=== PATIENT | female | born 1985 | race Caucasian/White ===

== ENCOUNTER → 2025-04-05 | Outpatient (CLI) | payer OTHER, SELFPAY ==
[2025-04-05 13:07] LABS: Hematocrit 44.2 % (37-47); Hemoglobin 14.9 g/dL (12.0-15.0); Immature Granulocytes Count 0.040 X10^3/uL (0.0-0.0); Mean Corp Hgb Conc 33.7 g/dL (32-36); Mean Corpuscular Volume 85.3 fL (81-99); Mean Platelet Vol. 11.8 fl (6.2-12.0); NRBC Flagged by Analyzer 0 % (0-5); Platelet Count 261 K/mm3 (150-450); RBC Distribution Width CV 13.4 % (11.6-14.6); RBC Distribution Width SD 41.5 fl (35.1-43.9); Red Blood Count 5.18 M/mm3 (4.2-5.4); White Blood Count 7.8 K/mm3 (4.4-11.0)
[2025-04-09 00:07] LABS: Ash, White <0.10 kU/L (Class 0); Black Walnut <0.10 kU/L (Class 0); Cat Hair / Dander,Stand <0.10 kU/L (Class 0); Cedar, Mountain <0.10 kU/L (Class 0); Cockroach, American <0.10 kU/L (Class 0); Dog Epithelia <0.10 kU/L (Class 0); Elm, American White <0.10 kU/L (Class 0); Mulberry, White <0.10 kU/L (Class 0); Oak, White <0.10 kU/L (Class 0); Pigweed, Rough <0.10 kU/L (Class 0); Ragweed, Short/Common <0.10 kU/L (Class 0); Sycamore, American <0.10 kU/L (Class 0)
[2025-04-11 16:08] LABS: Aspirgillus flavus Negative (Neg:<1:1); Aspirgillus fumigatus Negative (Neg:<1:1); Aspirgillus niger Negative (Neg:<1:1); Cytoplasmic Ab (C-ANCA) <1:20 titer (Neg:<1:20); Perinuclear Ab (P-ANCA) <1:20 titer (Neg:<1:20)
== END | disposition home or self-care (01) ==
LOC: LAB 12:12
PROVIDERS: PCP Nurse Practitioner Family; Referring Provider Internal Medicine Critical Care Medicine; Visit Provider Internal Medicine Critical Care Medicine
DX: R91.1 Solitary pulmonary nodule (principal); J45.909 Unspecified asthma, uncomplicated
CPT/HCPCS: 36415; 82785; 85025; 86003; 86037; 86606

== ENCOUNTER → 2025-04-14 | Outpatient (CLI) | payer OTHER, SELFPAY ==
--- NOTE | 2025-04-14 18:43 | CT_ITS ---
PROCEDURE: CHEST WITHOUT CONTRAST 04/14/2025 REASON FOR EXAM: LUNG NODULE TECHNIQUE: Chest CT without contrast. Coronal and Sagittal reconstruction series were provided. One or more dose reduction techniques were used (e.g., Automated exposure control, adjustment of the mA and/or kV according to patient size, use of iterative reconstruction technique RADIATION DOSE SUMMARY: CTDlvol: 17.36 mGy DLP: 563.91 mGycm COMPARISON: None. FINDINGS: LUNGS: No pulmonary mass. No focal airspace consolidation. Subpleural right lower lobe nodule measuring 3.2 mm. Small strandy opacity along the right minor fissure, possibly atelectasis or scarring. PLEURAL SPACES: No pleural effusion. No pneumothorax. HEART: No cardiomegaly. No significant pericardial effusion. MEDIASTINUM/HILUM: No significant lymphadenopathy. AORTA: No aneurysm. ESOPHAGUS: Unremarkable. CHEST WALL: The chest wall is unremarkable. BONES: No acute osseous abnormality. UPPER ABDOMEN: The upper abdominal solid organs are unremarkable. CT/Chest without Contrast IMPRESSION: 1. Right lower lobe nodule that is less than 4.0 mm in size. According to the 2017 Fleischner criteria, if the patient is low risk, no routine follow-up is recommended. If the patient is high risk, an opt ional CT at 12 months is recommended. 2. Coronary artery calcification (CAC) is is absent. Reading Location: [id number]
--- OUTSIDE RECORDS SUMMARY | 2025-04-14 18:46 | XMS RPT_ITS | CCD ---
Author Organization [facility] Care Team Providers Care Merchandising Execution Associate Name Role Phone Unavailable Primary Care Provider Antonio KEITH MD, ANDREA Espinosa Attending Unavailable Roof 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-C, Ced Monet Attending Provider Ungerer 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-C, Carmen Attending Provider TALKARMEHREEN Attending Unavailable TALKAR, MEHREEN Referring Unavailable BENDARAM, VA MANZANARES Attending Unavaila ble SELF Referring Unavailable BENDARAM, VA MANZANARES Referring Unavaila ble BENDARAM, VA MANZANARES Attending Unavaila ble Dr. Amando Durant DO Attending Provider [phone] Ungerer 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-C, Carmen Referring Provider [phone] BrownNannettek Attending Unavailable Ungerer, Carmen Referring Unavailable Ungerer, Carmen Attending Unavailable Roof, Ced H Attending Unavailable Ungerer, Carmen Primary Care Unavailable Brown, Amando Attending Unavailable Brown, Amando Referring Unavailable Brown, Amando Attending Unavailable Brown, Amando Referring Unavailable Ungerer, Cramen Primary Care Unavailable Brown, Amando Referring Unavailable Brown, Amando Attending Unavailable Ungerer, Carmen Primary Care Unavailable Brown, Amando Referring Unavailable Brown, Amando Attending Unavailable Ungerer, Carmen Primary Care Unavailable Allergies Allergy Classification Reported Allergen(s) Allergy Type Date of Onset Reaction(s) Facility (6 sources) Cetirizine; Translations: [CETIRIZINE] Drug Allergy 5 Anaphylaxis [facility] (6 sources) metFORMIN; Translations: [METFORMIN] Drug Allergy 5 Diarrhea, Dystonia, Vomiting [facility] (9 sources) PARoxetine; Translations: [PAROXETINE] Drug Allergy 5 Mental Status Change [facility] (3 sources) gabapentin Drug Allergy 5 unknown [facility] (1 source) gabapentin Drug Allergy 5 [facility] (1 source) PARoxetine Drug Allergy 5 [facility] Medications Current Medications Medication Drug Class(es) Dates Sig (Normalized) Sig (Original) [id number] 200 actuat albuterol 0.09 mg/actuat metered dose inhaler (1 source) beta2-Adrenergic Agonist Start: 02-24-2025 Albuterol Sulfate (Ventolin Hfa) 90 mcg/actuation HFA aerosol inhaler Active 2 NMA INHALATION EVERY 4-6 HOURS as needed for shortness of breath or wheezing 6.7 5 February 24, 2025 12:00am ALPRAZolam 0.5 mg oral tablet (3 sources) Benzodiazepine Start: 02-24-2025 take 1 tablet by mouth every eight hours as needed ALPRAZolam (XANAX) 0.5 mg tablet Take 0.5 mg by mouth three times a day as needed. 02/24/2025 Active atorvastatin 20 mg oral tablet (8 sources) HMG-CoA Reductase Inhibitor Start: 02-12-2025 End: 02-12-2025 take 1 tablet by mouth once daily Atorvastatin (Lipitor) 20 mg tablet Active 20 mg PO daily 30 February 12, 2025 11:09am escitalopram 20 mg oral tablet (8 sources) Serotonin Reuptake Inhibitor Start: 02-12-2025 End: 02-12-2025 take 1 tablet by mouth once daily Escitalopram Oxalate (Lexapro) 20 mg tablet Active 20 mg PO daily 30 February 12, 2025 11:09am Ethinyl Estradiol / norgestimate (8 sources) Progestin, Estrogen Start: 03-13-2025 take 1 tablet by mouth once daily norgestimate-ethin yl estradiol (YMQ-MZ-KWLMEQPQ) 0.18/0.215/0.25 mg-0.025 mg tablet Indications: PCOS (polycystic ovarian syndrome) Take 1 tablet by mouth once daily. 84 tablet 03/13/2025 Active Start: 02-12-2025 take 1 tablet by brendan th once daily Norgestimate-Ethinyl Estradiol 0.18/0.215/0.25 mg-0.025 mg tablet Active 1 {tbl} PO daily February 12, 2025 12:00am Start: 12-20-2024 take 1 tablet by brendan th once daily norgestimate-ethinyl estradiol (LED-IO-KKYMWSJR) 0.18/0.215/0.25 mg-0.025 mg tablet Indications: PCOS (polycystic ovarian syndrome) Take 1 tablet by mouth once daily. 84 tablet 12/20/2024 Active Start: 11-07-2024 End: 12-20-2024 take 1 tablet by mouth once daily norgestimate 0.25 mg-ethinyl estradiol 35 mcg 0.25-35 mg-mcg per tablet Indications: PCOS (polycystic ovarian syndrome) Take 1 tablet by mouth once daily. 84 tablet 11/07/2024 12/20/2024 Discontinued Start: 11-07-2024 take 1 tablet by brendan th once daily norgestimate 0.25 mg-ethinyl estradiol 35 mcg 0.25-35 mg-mcg per tablet Indications: PCOS (polycystic ovarian syndrome) Take 1 tablet by mouth once daily. 84 tablet 11/07/2024 Active xwkyxrhpk-mothg-pndhj-jose antonio-l av 0.5-25-12.5 mg chew (5 sources) melatonin-thean- bwcfc-ytit-bht 0.5-25-12.5 mg chew Take 2 Each by mouth once daily. Active naproxen 500 mg oral tablet (4 sources) Nonsteroidal Anti-inflammat ory Drug S t a r t : 0 8 - 2 4 - 2 0 2 5 E n d : 0 9 - 0 3 - 2 0 2 5 take 1 tablet by mouth twice daily as needed for pain naproxen (NAPROSYN) 500 mg tablet Indications: Left elbow pain Take 1 tablet by mouth two times a day as needed (FOR PAIN - TAKE WITH FOOD.) for up to 10 days. 20 tablet 03/19/2025 03/29/2025 Active Start: 02-12-2025 take [address] [facility] twice daily as needed Naproxen Sodium (Aleve) 220 mg capsule Active 220 mg PO TWICE A DAY as needed February 12, 2025 12:00am norgestimate-ethinyl estradiol (SML-QU-JHUSNGYQ PO) (2 sources) norgestimate-eth inyl estradiol (GBJ-BB-WZJESAUK PO) Take by mouth. Active propranolol hydrochloride 20 mg oral tablet (8 sources) beta-Adrenergi c Lenny Start: 2024 take 1 tablet by mouth every twelve hours propranolol (INDERAL) 20 mg tablet Take 1 tablet by mouth every 12 hours. 02/12/2025 Active Start: 02-12-2025 End: 02-12-2025 take 1 tablet by mouth twice daily Propranolol 20 mg tablet Active 20 mg PO TWICE A DAY 60 2 February 12, 2025 11:09am Completed/Discontinued Medications Medication Drug Class(es) Dates Sig (Normalized) Sig (Original) LORazepam 0.5 mg oral tablet (11 sources) Benzodiazepine Start: 02-12-2025 End: 02-24-2025 take 1 tablet by mouth three times daily as needed for anxiety Lorazepam 0.5 mg tablet Discontinued 0.5 mg PO THREE TIMES A DAY as needed for anxiety 21 0 February 12, 2025 11:22am February 24, 2025 4:18pm Start: 02-12-2025 End: 02-12-2025 take 5 mg by mouth three times daily as needed for anxiety Lorazepam 2 mg tablet Discontinued 5 mg PO THREE TIMES A DAY as needed for anxiety 21 0 February 12, 2025 11:09am February 12, 2025 11:23am Problems Active Problems Problem Classification Problem Date Documented Date Episodic/Chronic Administrative/social admission (3 sources) First encounter by subject; Translations: [Persons encountering health services in other specified circumstances] Onset: 04-06-2025 02-24-2025 Episodic Anxiety disorders (11 sources) Anxiety; Translations: [Anxiety disorder, unspecified] Onset: 04-06-2025 Chronic Asthma (5 sources) Asthma; Translations: [Unspecified asthma, uncomplicated] Onset: 04-06-2025 Chronic Asthma (1 source) Asthma Coronary atherosclerosis and other heart disease (4 sources) Coronary atherosclerosis and other heart disease; Translations: [Abnormal computed tomography of lung] Disorders of lipid metabolism (12 sources) Hyperlipidemia; Translations: [Hyperlipidemia, unspecified] Onset: 04-06-2025 Chronic Melanomas of skin (3 sources) Malignant melanoma; Translations: [Malignant melanoma of skin, unspecified] 02-24-2025 Chronic Menstrual disorders (4 sources) Irregular periods; Translations: [Irregular menstruation, unspecified] Onset: 10-19-2024 10-10-2024 Chronic Mood disorders (10 sources) Depression; Translations: [Depressive disorder] Chronic Mood disorders (1 source) Mood disorders; Translations: [Depression, unspecified] Onset: 04-06-2025 Multiple sclerosis (9 sources) Multiple sclerosis; Translations: [Multiple sclerosis] Onset: 04-06-2025 Chronic Other endocrine disorders (3 sources) Polycystic ovary syndrome; Translations: [Polycystic ovarian syndrome] 11-07-2024 Chronic Other lower respiratory disease (1 source) Imaging of lung abnormal ; Translations: [Other nonspecific abnormal finding of lung field] 02-24-2025 Episodic Other lower respiratory disease (2 sources) Nodule of lung; Translations: [Solitary pulmonary nodule] 04-05-2025 Episodic Other lower respiratory disease (2 sources) Solitary pulmonary nodule; Translations: [Solitary pulmonary nodule] Onset: 04-05-2025 Episodic Other lower respiratory disease (1 source) Other nonspecific abnormal finding of lung field; Translations: [Other nonspecific abnormal finding of lung field] Onset: 04-06-2025 Episodic Other nervous system disorders (11 sources) Tremor; Translations: [Tremor, unspecified] Episodic Other nervous system disorders (1 source) Tremor, unspecified; Translations: [Tremor, unspecified] Onset: 04-06-2025 Episodic Other non-traumatic joint disorders (1 source) Pain in unspecified knee; Translations: [Pain in unspecified knee] Onset: 12-26-2024 Episodic Other non-traumatic joint disorders (1 source) Effusion, right knee; Translations: [Effusion, right knee] Onset: 12-26-2024 Episodic Other non-traumatic joint disorders (3 sources) Pain in elbow; Translations: [Pain in left elbow] 03-19-2025 Episodic Other non-traumatic joint disorders (1 source) Pain in left elbow; Translations: [Left elbow pain] Onset: 03-19-2025 Episodic Other screening for suspected conditions (not mental disorders or infectious disease) (1 source) Abnormal findings on diagnostic imaging of other parts of musculoskeletal system; Translations: [Abnormal findings on diagnostic imaging of other parts of musculoskeletal system] Onset: 12-26-2024 Episodic Residual codes; unclassified (1 source) Flushing; Translations: [Flushing] 10-10-2024 Episodic Residual codes; unclassified (4 sources) Family history of cardiac disorder; Translations: [Family history of ischemic heart disease and other diseases of the circulatory system] 02-12-2025 Episodic Residual codes; unclassified (1 source) Family history of ischemic heart disease and other diseases of the circulatory system; Translations: [Family history of ischemic heart disease and other diseases of the circulatory system] Onset: 02-12-2025 Episodic Sprains and strains (1 source) Sprain of unspecified site of right knee, initial encounter; Translations: [Sprain of unspecified site of right knee, initial encounter] Onset: 12-26-2024 Episodic Unclassified (3 sources) F41.9 - Anxiety disorder, unspecified,F32.A - Depression, unspecified,R25.1 - Tremor, unspecified,G35 - Multiple sclerosis,E78.5 - Hyperlipidemia, unspecified,Z82.49 - Family history of ischemic heart disease and other diseases of the circulatory system Past or Other Problems Problem Classification Problem Date Documented Da te Episodic/Chronic Residual codes; unclassified (1 source) Flushing; Translations: [Hot flashes] Onset: 10-19-2024 Episodic Results Test Name Value Interpretation Reference Range Facility ANCAon 04-11-2025 Atypical pANCA <1:20 Normal Neg:<1:20 [facility] Comment on above: Result Comment: The atypical pANCA pattern has been observed in a significant percentage of patients with ulcerative colitis, primary sclerosing cholangitis and autoimmune hepatitis. Performed By: #### L 100.0100, L5500.0700, L3200.1600, L3300.1200, L3500.3600 #### [facility] [address] [place], [address] Cytoplasmic Ab <1:20 Normal Neg:<1:20 [facility] Comment on above: Performed By: #### L 100.0100, L5500.0700, L3200.1600, L3300.1200, L3500.3600 #### [facility] [address] [place], [place], [phone]) Perinuclear Ab. <1:20 Normal Neg:<1:20 [facility] Comment on above: Result Comment: The presence of positive fluorescence exhibiting P-ANCA or C-ANCA patterns alone is not specific for the diagnosis of Rj's Granulomatosis (WG) or microscopic polyangiitis. Decisions about treatment should not be based solely on ANCA IFA results. The International ANCA Group Consensus recommends follow up testing of positive sera with both AR- 3 and MPO-ANCA enzyme immunoassays. As many as 5% serum samples are positive only by EIA. Ref. AM J Clin Pathol 1999;111:507-513. Performed By: #### L 100.0100, L5500.0700, L3200.1600, L3300.1200, L3500.3600 #### [facility] [address] [place], [address] Aspergillus Antibodieson Asp. flavus Negative Normal Neg:<1:1 [facility] Comment on above: Performed By: #### L 100.0100, L5500.0700, L3200.1600, L3300.1200, L3500.3600 #### [facility] [address] [place], [address] Asp. fumigatus Negative Normal Neg:<1:1 [facility] Comment on above: Performed By: #### L 100.0100, L5500.0700, L3200.1600, L3300.1200, L3500.3600 #### [facility] [address] [place], [address] Asp. niger Negative Normal Neg:<1:1 [facility] Comment on above: Performed By: #### L 100.0100, L5500.0700, L3200.1600, L3300.1200, L3500.3600 #### [facility] [address] [place], [address] Immunoglobulin Tone 5 IMMUNOGLOB E QN 20 IU/mL Normal 6-495 [facility] Comment on above: Result Comment: Perf ormed at: [facility] [address] [place] [id number] Research Engineer Marine Equipment: Avery Shahid PhD, Phone: [phone] Performed at: [address] [id number] Research Engineer Marine Equipment: Navya Ford MD, Phone: [phone] Performed By: #### L 100.0100, L5500.0700, L3200.1600, L3300.1200, L3500.3600 #### [facility] [address] [place], [address] Allergen Resp. Area 5on 03-27 ALTERNARIA TEN <0.10 Normal Class 0 [facility] Comment on above: Order Comment: Reaso n for Exam: asthma Performed By: #### L 100.0100, L5500.0700, L3200.1600, L3300.1200, L3500.3600 #### [facility] [address] [place], [address] MARIJA, WHITE <0.10 Normal Class 0 [facility] Comment on above: Order Comment: Reaso n for Exam: asthma Performed By: #### L 100.0100, L5500.0700, L3200.1600, L3300.1200, L3500.3600 #### [facility] [address] [place], [address] ASPERGILLUS FUM <0.10 Normal Class 0 [facility] Comment on above: Order Comment: Reaso n for Exam: asthma Performed By: #### L 100.0100, L5500.0700, L3200.1600, L3300.1200, L3500.3600 #### [facility] [address] [place], [address] BERMUDA GRASS <0.10 Normal Class 0 [facility] Comment on above: Order Comment: Reaso n for Exam: asthma Performed By: #### L 100.0100, L5500.0700, L3200.1600, L3300.1200, L3500.3600 #### [facility] [address] [place], [address] BIRCH <0.10 Normal Class 0 [facility] Comment on above: Order Comment: Reaso n for Exam: asthma Performed By: #### L 100.0100, L5500.0700, L3200.1600, L3300.1200, L3500.3600 #### [facility] [address] [place], [address] BLACK WALNUT <0.10 Normal Class 0 [facility] Comment on above: Order Comment: Reaso n for Exam: asthma Performed By: #### L 100.0100, L5500.0700, L3200.1600, L3300.1200, L3500.3600 #### [facility] [address] [place], [address] CAT HAIR/DANDER <0.10 Normal Class 0 [facility] Comment on above: Order Comment: Reaso n for Exam: asthma Performed By: #### L 100.0100, L5500.0700, L3200.1600, L3300.1200, L3500.3600 #### [facility] [address] [place], [place], [facility] CLADOSPOR HERB <0.10 Normal Class 0 [facility] Comment on above: Order Comment: Reaso n for Exam: asthma Performed By: #### L 100.0100, L5500.0700, L3200.1600, L3300.1200, L3500.3600 #### [facility] [address] [place], [address] COCKROACH,AMER <0.10 Normal Class 0 [facility] Comment on above: Order Comment: Reaso n for Exam: asthma Performed By: #### L 100.0100, L5500.0700, L3200.1600, L3300.1200, L3500.3600 #### [facility] [address] [place], [place], [facility] COMMENT Comment Normal . [facility] Comment on above: Order Comment: Reaso n for Exam: asthma Result Comment: Corrie stoddard of Specific IgE Class Description of Class ----- < 0.10 0 Negative 0.10 - 0.31 0/I Equivocal/Low 0.32 - 0.55 I Low 0.56 - 1.40 II Moderate 1.41 - 3.90 III High 3.91 - 19.00 IV Very High 19.01 - 100.00 V Very High >100.00 Very High Performed By: #### L 100.0100, L5500.0700, L3200.1600, L3300.1200, L3500.3600 #### [facility] [address] [place], [address] COTTONWOOD <0.10 Normal Class 0 [facility] Comment on above: Order Comment: Reaso n for Exam: asthma Performed By: #### L 100.0100, L5500.0700, L3200.1600, L3300.1200, L3500.3600 #### [facility] [address] [place], [place], [facility] D FARINAE MITE <0.10 Normal Class 0 [facility] Comment on above: Order Comment: Reaso n for Exam: asthma Performed By: #### L 100.0100, L5500.0700, L3200.1600, L3300.1200, L3500.3600 #### [facility] [address] [place], [address] D PTERONYSSINUS <0.10 Normal Class 0 [facility] Comment on above: Order Comment: Reaso n for Exam: asthma Performed By: #### L 100.0100, L5500.0700, L3200.1600, L3300.1200, L3500.3600 #### [facility] [address] [place], [address] DOG EPITHELIA <0.10 Normal Class 0 [facility] Comment on above: Order Comment: Reaso n for Exam: asthma Performed By: #### L 100.0100, L5500.0700, L3200.1600, L3300.1200, L3500.3600 #### [facility] [address] [place], [address] ELM,AMER WHITE <0.10 Normal Class 0 [facility] Comment on above: Order Comment: Reaso n for Exam: asthma Performed By: #### L 100.0100, L5500.0700, L3200.1600, L3300.1200, L3500.3600 #### [facility] [address] [place], [address] IMMUNOGLOB E 24 IU/mL Normal 6-495 [facility] Comment on above: Order Comment: Reaso n for Exam: asthma Performed By: #### L 100.0100, L5500.0700, L3200.1600, L3300.1200, L3500.3600 #### [facility] [address] [place], [address] MAPLE/BOX ELDER <0.10 Normal Class 0 [facility] Comment on above: Order Comment: Reaso n for Exam: asthma Performed By: #### L 100.0100, L5500.0700, L3200.1600, L3300.1200, L3500.3600 #### [facility] [address] [place], [address] MOUNTAIN CEDAR <0.10 Normal Class 0 [facility] Comment on above: Order Comment: Reaso n for Exam: asthma Performed By: #### L 100.0100, L5500.0700, L3200.1600, L3300.1200, L3500.3600 #### [facility] [address] [place], [address] Mouse Urine <0.10 Normal Class 0 [facility] Comment on above: Order Comment: Reaso n for Exam: asthma Performed By: #### L 100.0100, L5500.0700, L3200.1600, L3300.1200, L3500.3600 #### [facility] [address] [place], [address] MULBERRY,WHITE <0.10 Normal Class 0 [facility] Comment on above: Order Comment: Reaso n for Exam: asthma Performed By: #### L 100.0100, L5500.0700, L3200.1600, L3300.1200, L3500.3600 #### [facility] [address] [place], [address] OAK, WHITE <0.10 Normal Class 0 [facility] Comment on above: Order Comment: Reaso n for Exam: asthma Performed By: #### L 100.0100, L5500.0700, L3200.1600, L3300.1200, L3500.3600 #### [facility] [address] [place], [facility] PECAN <0.10 Normal Class 0 [facility] Comment on above: Order Comment: Reaso n for Exam: asthma Performed By: #### L 100.0100, L5500.0700, L3200.1600, L3300.1200, L3500.3600 #### [facility] [address] [place], [facility] PEN NOTATUM <0.10 Normal Class 0 [facility] Comment on above: Order Comment: Reaso n for Exam: asthma Performed By: #### L 100.0100, L5500.0700, L3200.1600, L3300.1200, L3500.3600 #### [facility] [address] [place], [address] PIGWEED, ROUGH <0.10 Normal Class 0 [facility] Comment on above: Order Comment: Reaso n for Exam: asthma Performed By: #### L 100.0100, L5500.0700, L3200.1600, L3300.1200, L3500.3600 #### [facility] [address] [place], [address] RAGWEED SH/COM <0.10 Normal Class 0 [facility] Comment on above: Order Comment: Reaso n for Exam: asthma Performed By: #### L 100.0100, L5500.0700, L3200.1600, L3300.1200, L3500.3600 #### [facility] [address] [place], [address] SAUDI ARABIAN THISTLE <0.10 Normal Class 0 [facility] Comment on above: Order Comment: Reaso n for Exam: asthma Performed By: #### L 100.0100, L5500.0700, L3200.1600, L3300.1200, L3500.3600 #### [facility] [address] [place], [address] SHEEP SORREL <0.10 Normal Class 0 [facility] Comment on above: Order Comment: Reaso n for Exam: asthma Result Comment: Perf ormed at: [facility] [id number] Research Engineer [employer]: Navya Ford MD, Phone: [phone] Performed By: #### L 100.0100, L5500.0700, L3200.1600, L3300.1200, L3500.3600 #### [facility] [address] [place], [address] SYCAMORE, AMER <0.10 Normal Class 0 [facility] Comment on above: Order Comment: Reaso n for Exam: asthma Performed By: #### L 100.0100, L5500.0700, L3200.1600, L3300.1200, L3500.3600 #### [facility] [address] [place], [address] CONNIE GRASS <0.10 Normal Class 0 [facility] Comment on above: Order Comment: Reaso n for Exam: asthma Performed By: #### L 100.0100, L5500.0700, L3200.1600, L3300.1200, L3500.3600 #### [facility] [address] [place], [address] CBC W/Diff, Automatedon 09-1 0-2025 Absolute Lymph 2.97 X10 3/uL Normal 0.83-4.51 [facility] Comment on above: Performed By: #### L 100.0100, L5500.0700, L3200.1600, L3300.1200, L3500.3600 #### [facility] [address] [place], [address] Absolute Neut 4.3 X10 3/uL Normal 2.0-7.7 [facility] Comment on above: Performed By: #### L 100.0100, L5500.0700, L3200.1600, L3300.1200, L3500.3600 #### [facility] [address] [place], [address] Basophils/100 WBC (Bld) 0.6 % Normal 0-1 [facility] Comment on above: Performed By: #### L 100.0100, L5500.0700, L3200.1600, L3300.1200, L3500.3600 #### [facility] [address] [place], [address] Eosinophils/100 WBC (Bld) 0.6 % Normal 0-5 [facility] Comment on above: Performed By: #### L 100.0100, L5500.0700, L3200.1600, L3300.1200, L3500.3600 #### [facility] [address] [place], [address] Erythrocyte distribution width (RBC) [Ratio] 13.4 % Normal 11.6-14.6 [facility] Comment on above: Performed By: #### L 100.0100, L5500.0700, L3200.1600, L3300.1200, L3500.3600 #### [facility] [address] [place], [address] Hematocrit (Bld) [Volume fraction] 44.2 % Normal 37-47 [facility] Comment on above: Performed By: #### L 100.0100, L5500.0700, L3200.1600, L3300.1200, L3500.3600 #### [facility] [address] [place], [address] Hemoglobin (Bld) [Mass/Vol] 14.9 g/dL Normal 12.0-15.0 [facility] Comment on above: Performed By: #### L 100.0100, L5500.0700, L3200.1600, L3300.1200, L3500.3600 #### [facility] [address] [place], [address] IG% 0.500 Normal 0.0-0.9 [facility] Comment on above: Result Comment: IG% - Immature Granulocytes (promyelocytes, myelocytes and metamyelocytes) > 1% indicates that a LEFT SHIFT is Present. Performed By: #### L 100.0100, L5500.0700, L3200.1600, L3300.1200, L3500.3600 #### [facility] [address] [place], [address] Lymphocytes/100 WBC (Bld) 38.0 % Normal 19-41 [facility] Comment on above: Performed By: #### L 100.0100, L5500.0700, L3200.1600, L3300.1200, L3500.3600 #### [facility] [address] [facility], [address] MCH (RBC) [Entitic mass] 28.8 pg Normal 27.0-32.0 [facility] Comment on above: Performed By: #### L 100.0100, L5500.0700, L3200.1600, L3300.1200, L3500.3600 #### [facility] [address] [place], [address] MCHC (RBC) [Mass/Vol] 33.7 g/dL Normal 32-36 [facility] Comment on above: Performed By: #### L 100.0100, L5500.0700, L3200.1600, L3300.1200, L3500.3600 #### [facility] [facility] [address] [place], [address] MCV (RBC) [Entitic vol] 85.3 fL Normal 81-99 [facility] Comment on above: Performed By: #### L 100.0100, L5500.0700, L3200.1600, L3300.1200, L3500.3600 #### [facility] [address] [place], [address] Monocytes/100 WBC (Bld) 5.9 % Normal 0-10 [facility] Comment on above: Performed By: #### L 100.0100, L5500.0700, L3200.1600, L3300.1200, L3500.3600 #### [facility] [address] [place], [address] Neutrophils/100 WBC (Bld) 54.4 % Normal 47-70 [facility] Comment on above: Performed By: #### L 100.0100, L5500.0700, L3200.1600, L3300.1200, L3500.3600 #### [facility] [address] [place], [address] Nucleated RBC (Bld) [#/Vol] 0 10*3/uL Normal 0-5 [facility] Comment on above: Performed By: #### L 100.0100, L5500.0700, L3200.1600, L3300.1200, L3500.3600 #### [facility] [address] [place], [address] Platelet mean volume (Bld) [Entitic vol] 11.8 fL Normal 6.2-12.0 [facility] Comment on above: Performed By: #### L 100.0100, L5500.0700, L3200.1600, L3300.1200, L3500.3600 #### [facility] [address] [place], [address] Platelets (Bld) [#/Vol] 261 10*3/uL Normal 150-450 [facility] Comment on above: Performed By: #### L 100.0100, L5500.0700, L3200.1600, L3300.1200, L3500.3600 #### [facility] [address] [place], [address] RBC (Bld) [#/Vol] 5.18 10*6/uL Normal 4.2-5.4 [facility] Comment on above: Performed By: #### L 100.0100, L5500.0700, L3200.1600, L3300.1200, L3500.3600 #### [facility] [address] [place], [address] RDW SD 41.5 fl Normal 35.1-43.9 [facility] Comment on above: Performed By: #### L 100.0100, L5500.0700, L3200.1600, L3300.1200, L3500.3600 #### [facility] [address] [place], [address] WBC (Bld) [#/Vol] 7.8 10*3/uL Normal 4.4-11.0 [facility] Comment on above: Performed By: #### L 100.0100, L5500.0700, L3200.1600, L3300.1200, L3500.3600 #### [facility] [address] [place], [address] Pulmonary Visit Reporton Pulmonary Visit Report [facility] [address] [place] [address] OFFICE VISIT Date of Service: 04/05/25 MR#: [id number] Acct: [id number] Name: SULEMA HERNANDEZ Rep #: [id number] : 1985 Provider: Dr. Amando Durant DO Age/Sex: 40/F Location: [facility] Status: Signed Assessment and Plan Assessment and Plan (1) Asthma: Status: Chronic Plan: The patient presented today for the evaluation of asthma, which was initially diagnosed in childhood. The patient relocated from [place] to [place] approximately 1 year ago and has noted some interval worsening in her breathing quality. She is now utilizing her rescue inhaler, on average, 2 times per week for symptom relief. At this time, we will plan to obtain baseline pulmonary function studies along with a 6-minute walk test to assess for any exertional hypoxemia. In addition, will obtain CBC with differential to evaluate for peripheral eosinophilia along with IgE level, RAST profile, ANCA and Aspergillus antibodies. Ultimately, if the patient remains symptomatic with increasing use of her rescue inhaler, will consider transitioning her to a maintenance inhaler regimen at her follow-up office visit. (2) Lung nodule: Status: Chronic Plan: The patient was previously noted to have a 5 mm lung nodule in the right lower lobe on CT imaging from [place] in December 2023. In light of the patient's tobacco abuse history, recommend follow-up CT scan at this time. Orders: Orders Immunoglobulin E 04/05/25 J45.909 - Unspecified asthma, uncomplicated, R91.1 - Solitary pulmonary nodule CBC W/Diff, Automated 04/05/25 J45.909 - Unspecified asthma, uncomplicated, R91.1 - Solitary pulmonary nodule Aspergillus Antibodies 04/05/25 J45.909 - Unspecified asthma, uncomplicated, R91.1 - Solitary pulmonary nodule ANCA 04/05/25 J45.909 - Unspecified asthma, uncomplicated, R91.1 - Solitary pulmonary nodule Allergen Resp. Area 5 04/05/25 J45.909 - Unspecified asthma, uncomplicated, R91.1 - Solitary pulmonary nodule Simple Pulmonary Exercise Test 04/20/25 J45.909 - Unspecified asthma, uncomplicated, R91.1 - Solitary pulmonary nodule PFT Complete - DLCO, Spirometry b/a bronchodilators, lung volumes 04/19/25 J45.909 - Unspecified asthma, uncomplicated, R91.1 - Solitary pulmonary nodule Chest without Contrast 04/05/25 R91.1 - Solitary pulmonary nodule HPI HPI Comments Details: The patient is a 40-year-old female who presents to the clinic today in referral for the evaluation of asthma. The patient reported that she was initially diagnosed with asthma in childhood. For a period of time, her symptoms improved only to worsen again in adulthood. The patient recently relocated from [place] to the local area approximately 1 year ago. She was apparently being followed by a pulmonary provider while residing in [place]. At the present time, the patient has only prescribed as needed albuterol, which according to the patient, does lead to interval symptom improvement. On average, she indicated that she is utilizing her rescue inhaler 2 times per week. She denies any nighttime symptoms. The patient has a combustible cigarette smoking history that includes 1.5 packs of cigarettes per day, beginning at the age of 14. The patient then reported that she quit smoking cigarettes at the age of 37 and transitioned to vaping. She did not grow up in a smoking household. The patient does not currently keep any animals as pets in her home environment. 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 She does endorse the presence of shortness of breath, especially when bending over along with any form of strenuous physical exertion. She denies any chest tightness, wheezing or cough. She does admit that she has gained approximately 80 pounds over the course of the last 2 years. She denies any fevers, chills or night sweats. The patient does have a history of a subcentimeter lung nodule identified on CT imaging in [place] in December 2023. She was noted to have a 5 mm nodule in the right lower lobe. The remainder of her scan was otherwise unremarkable. 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 Normal [facility] CNOVon 03-19-2025 CNOV Office Visit ([facility]) SULEMA HERNANDEZ ([id number]) 1985 F Date Time Provider Department 03/19/25 9:30 AM MEHREEN GREEN During your visit today, we recorded the following information about you: Temperature Pulse Respiration Blood pressure 98 degrees 70/minute 18/minute 118/76 Weight 95.3 kg Mehreen Green MD 03/19/2025 10:07 AM Signed [facility] Subjective Sulema Hernandez is a 40 year old female. Patient presents with: left arm pain: X 3 days-uncertain what she did Pt here with left elbow are pain no limits to rOM no known injury pain around elbow radiates to forearm and upper arm no redness no fever no chills Review of Systems Constitutional: Negative for chills and fever. Musculoskeletal: Positive for arthralgias and myalgias. Negative for joint swelling. Skin: Negative for rash and wound. Neurological: Negative for weakness and numbness. Objective BP 118/76 Pulse 70 Temp 36.7 ?C (98 ?F) (Tympanic) Resp 18 Wt 95.3 kg (210 lb 1.6 oz) LMP 10/04/2024 (Approximate) SpO2 98% BMI 38.43 kg/m? Physical Exam Vitals and nursing note reviewed. Constitutional: Appearance: Normal appearance. She is not ill-appearing. Musculoskeletal: General: Tenderness present. No swelling, deformity or signs of injury. Normal range of motion. Skin: Capillary Refill: Capillary refill takes less than 2 seconds. Findings: No bruising, erythema or rash. Neurological: Mental Status: She is alert and oriented to person, place, and time. Sensory: No sensory deficit. Motor: No weakness. Coordination: Coordination normal. Deep Tendon Reflexes: Reflexes normal. {ASSESSMENT/PLAN: 1. Left elbow pain - ICD9: 719.42, ICD10: M25.522 Use sling for next few days follow up with orthopedist if needed - XR ELBOW SPECIAL VIEWS AP/LAT/OTHER LEFT - NAPROXEN 500 MG TABLET - CONSULT TO ORTHOPAEDICS Initial read is negative Mehreen Green MD History and Record Review External record(s) reviewed: prior outpatient record. Differential Diagnoses - elbow sprain is more likely for the following reason(s): suggested by HANDP and consistent with imaging - fracture is less likely for the following reason(s): no evidence on imaging Disposition The patient was discharged. Procedures Mehreen Green MD 03/19/2025 10:01 AM Signed SPRAINS AND STRAINS BASIC INFORMATION Description: A strain is a stretched or torn muscle. A sprain is a stretched or torn ligament. Sprains occur most often in ankles, knees, or fingers, although any joint can be sprained. Sprained joints can function, but only with pain. Frequent Signs and Symptoms: - Pain or tenderness in the area of injury; severity varies with the extent of injury. - Swelling of the affected joint. - Redness or bruising in the area of injury, either immediately or several hours after injury. - Loss of normal mobility in the injured joint. Causes: Strains usually are associated with overuse injuries. Sprains usually occur secondary to trauma (fall, twisting injury or automobile accident). The ankel is injured most often because of its anatomical weakness, its exposed position, and the stress it sustains in athletic and recreational activities. It is difficult to differentiate sprains from strains. Risk Increases With: - Obesity . - Trauma. - Excessive exercise. - Poor conditioning. - Poor fitting shoes and high heeled shoes. - High-risk activities (skateboarding), contact spoints, ice and roller skating. Preventive Measures: - Maintain good level of physical fitness. - Wrap weak joints with support bandanges before strenuous activity. - Stretch muscles before and after exercise. - Strengthen weak muscles with rehabilitative exercises to prevent a recurrence. - Accident-proof your home. Expected Outcome: With appropriate treatment and rest, 6-8 weeks for recovery. May take longer depending on the severity of the injury. Possible Complications: - Permanent weakness if the sprain is severe or if a joint is sprained repeatedly. - Arthritis. TREATMENT General Measures: - Diagnostic tests may include x-rays of the injured area, or CT scan or MRI. -RICE therapy: rest, ice, compression, and elevation - Apply ice to the injured joint during the first [address] ice in a plastic bag and separate it from the skin with a thin towel. Hold it against the joint with your hand or an elastic bandage. Keep the ice pack on the joint up to 2 hours at a time either constantly or intermittently depending on your ability to tolerate the cold. Continue the ice treatment at 2-hour intervals for 24 hours. - After 24 hours, you may continue ice treatment or switch to heat. - To use heat, soak the joint in hot water or apply heat for 15 minutes every 2 hours or whenever possible. Don't apply heat during the first 24 hours. (more content not included)... Normal [facility] XR ELBOW 3V AP/LAT/OTHER LTo n 03-19-2025 XR ELBOW 3V AP/LAT/OTHER LT * * *Final Report* * * DATE OF EXAM: Mar 19 2025 9:58AM WOX [id number] - XR ELBOW 3V AP/LAT/OTHER LT / PROCEDURE REASON: Left elbow pain * * * * Physician Interpretation * * * * EXAMINATION / TECHNIQUE: XR ELBOW 3V AP/LAT/OTHER LT HISTORY: Left elbow pain COMPARISON: None RESULT: No acute fracture or dislocation. No joint effusion. No articular abnormality. IMPRESSION: Unremarkable. Grocery Clerk: DWIGHT Transcribe Date/Time: Mar 19 2025 10:22A Dictated by : ASHWIN LEROY MD This examination was interpreted and the report reviewed and electronically signed by: ASHWIN LEROY MD on Mar 19 2025 10:23AM EST [id number] Normal [facility] XR Elbow - left AP and Later al and obliqueon 03-19-2025 IMPRESSION: Unremarkable. Grocery Clerk: PSCShaun Transcribe Date/Time: Mar 19 2025 10:22A Dictated by : ASHWIN LEROY MD This examination was interpreted and the report reviewed and electronically signed by: ASHWIN LEROY MD on Mar 19 2025 10:23AM EST DIVISION OF RADIOLOGY * * *Final Report* * * DATE OF EXAM: Mar 19 2025 9:58AM WOX 5324 - XR ELBOW 3V AP/LAT/OTHER LT / PROCEDURE REASON: Left elbow pain * * * * Physician Interpretation * * * * EXAMINATION / TECHNIQUE: XR ELBOW 3V AP/LAT/OTHER LT HISTORY: Left elbow pain COMPARISON: None RESULT: No acute fracture or dislocation. No joint effusion. No articular abnormality. DIVISION OF RADIOLOGY Provider, Paco Holley - 03/19/2025 * * *Final Report* * * DATE OF EXAM: Mar 19 2025 9:58AM WOX 5324 - XR ELBOW 3V AP/LAT/OTHER LT / PROCEDURE REASON: Left elbow pain * * * * Physician Interpretation * * * * EXAMINATION / TECHNIQUE: XR ELBOW 3V AP/LAT/OTHER LT HISTORY: Left elbow pain COMPARISON: None RESULT: No acute fracture or dislocation. No joint effusion. No articular abnormality. IMPRESSION IMPRESSION: Unremarkable. Grocery Clerk: PSCB Transcribe Date/Time: Mar 19 2025 10:22A Dictated by : ASHWIN LEROY MD This examination was interpreted and the report reviewed and electronically signed by: ASHWIN LEROY MD on Mar 19 2025 10:23AM EST [facility] Radiology Study observation (narrative) [facility] XR Elbow - left AP and Later al and obliqueOrdered By: Ccf Provider on 03-19-2025 [facility] Internal Medicine Office Vis iton 02-24-2025 Internal Medicine Office Visit [facility] [address] [place], [place] [address] OFFICE VISIT Date of Service: 02/24/25 MR#: [id number] Acct: [id number] Name: SULEMA HERNANDEZ Rep #: [id number] : 1985 Provider: HAVEN conti Age/Sex: 40/F Location: [facility] Status: Signed Intake Vital Signs 02/12/25 10:44 02/24/25 15:01 Height 5 ft 2 in 5 ft 2 in Weight: 208 lb 210 lb BMI 38.0 38.4 BP 114/70 142/88 H Blood Pressure Location Lt brachial Lt brachial Position Sitting Sitting Respiration 16 18 Pulse 85 94 Pulse Source Monitor Monitor Temp 97.7 F L Temp Source Temporal Pulse Oximetry (%) 99 97 Oxygen Delivery Method room air room air Intake 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 Chief Complaint: 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 MED REFILL-EST IN [place]ULY Is patient in pain?: No Allergies gabapentin Allergy (Unknown, Verified 02/24/25 15:04) unknown paroxetine (From Paxil) Allergy (Unknown, Verified 02/24/25 15:04) unknown Medications ???Medication ???Instructions ???Recorded ???Confirmed ???Type atorvastatin 20 mg tablet (Lipitor) 20 mg PO QDAY #30 tabs 02/12/25 02/24/25 Rx escitalopram oxalate 20 mg tablet 20 mg PO QDAY #30 tabs 02/12/25 0 02/24/25 Rx (Lexapro) lorazepam 0.5 mg tablet 0.5 mg PO TID PRN anxiety #21 tabs 02/12/25 02/24/25 Rx naproxen sodium 220 mg capsule 220 mg PO BID PRN 02/12/25 5 History (Aleve) norgestimate 0.18 mg/0.215mg/0.25 1 tab PO QDAY 02/12/25 02/24/25 H istory mg-ethinyl estradiol 0.025 mg tablet propranolol 20 mg tablet 20 mg PO BID #60 tabs 02/12/2508/20 Rx Nurse's Note: pt reports that she had a CT scan of her lungs about a year ago that showed an area on her lungs that needed monitored with another scan in a year pt has concerns about increased anxiety and depression due to having some triggering factors in her work life. [facility] Medical History (Updated 02/24/25 @ 16:11 by HAVEN Hoyos) Hypercholesteremia Anxiety and depression Panic attacks PTSD (post-traumatic stress disorder) Asthma Surgical History History of knee surgery Family History Mother Hypertension PCOS (polycystic ovarian syndrome) Father Mental health disorder Heart disease Anxiety Depression Social History adopted: No household members: spouse current occupational status: employed current occupational exposures/hazards: Yes (bodily fluids/ violence ) Smoking Status: Former smoker Tobacco: How many years used: 20 alcohol intake: never seatbelt use: always do you feel safe at home: Yes HPI HPI 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 She was seeing a PCP in [place] and last saw them 1 year ago. She is due for some routine blood work. She doesn't smoke and does need refills today. The patient has been out of medications for anxiety for about a year. She states that after moving to [place] her symptoms of anxiety were improved therefore she stopped taking the Lexapro and alprazolam. She still had a supply of propranolol that she took as needed for tremors. patient has history of anxiety and depression since she was 19 years old. When she was in college she was started on Zoloft which she states worked until she got at age 19 and she noticed nausea and vomiting so she stopped taking the Zoloft. States when her children were younger she did take Effexor and recalls it was somewhat effective. Patient has been on Paxil in the past with adverse effect of making her feel like she was dying and very unsteady. Patient has tried buspirone in the past which she states increased her anxiety. Patient most recently while she was in [place] was treated with alprazolam 3 times daily as needed states she never took it 3 times a day but was used only for panic attacks. She was also on Lexapro she states she has been on Lexapro the longest for her anxiety and depression and it has worked the best for her. On February 12 patient's symptoms of anxiety reached a peak due to some traumatic events at work. [facility] and was given prescriptions to restart medications for anxiety and depression. Patient states she did start taking the 20 mg of Lexapro however noticed that it upset her stomach after not having taken it for some time so she did take half a pill daily for a week before restarting the 20 mg dose. She also cannot remember the name of the medication she was on for her panic attacks and stated that she was on lorazepam instead of alprazolam. That she had a prescription for lorazepam she states it does not seem to be quite as (more content not included)... Normal [facility] Urgent Care Visit Reporton 0 02-12-2025 Urgent Care Visit Report [facility] [address], [address] [place] [address] OFFICE VISIT Date of Service: 02/12/25 MR#: [id number] Acct: [id number] Name: SULEMA HERNANDEZ Rep #: [id number] : 1985 Provider: HAVEN patel Age/Sex: 39/F Location: [facility] Status: Signed Intake Vital Signs 02/12/25 10:44 Height 5 ft 2 in Weight: 208 lb BMI 38.0 BP 114/70 Blood Pressure Location Lt brachial Position Sitting Respiration 16 Pulse 85 Pulse Source Monitor Pulse Oximetry (%) 99 Oxygen Delivery Method room air Intake Visit Reasons: MED DISCUSSION/SELF PAY Allergies gabapentin Allergy (Unknown, Verified 02/12/25 10:14) unknown paroxetine (From Paxil) Allergy (Unknown, Verified 02/12/25 10:14) unknown Medications ???Medication ???Instructions ???Recorded ???Confirmed ???Type atorvastatin 20 mg tablet (Lipitor) 20 mg PO QDAY #30 tabs 02/12/25 02/12/25 Rx escitalopram oxalate 20 mg tablet 20 mg PO QDAY #30 tabs 02/12/25 0 02/12/25 Rx (Lexapro) lorazepam 2 mg tablet 5 mg (2.5 x 2 mg) PO TID PRN 02/1202/12/25 Rx anxiety #21 tabs naproxen sodium 220 mg capsule 220 mg PO BID PRN 02/12/25 5 History (Aleve) norgestimate 0.18 mg/0.215mg/0.25 1 tab PO QDAY 02/12/25 02/12/25 H istory mg-ethinyl estradiol 0.025 mg tablet propranolol 20 mg tablet 20 mg PO BID #60 tabs 02/12/25 Rx PFSH Medical History (Updated 02/12/25 @ 11:08 by Ced Castro NP, JAMILC) Hypercholesteremia Anxiety and depression Panic attacks PTSD (post-traumatic stress disorder) Asthma Surgical History (Updated 02/12/25 @ 10:17 by Jada Larson) History of knee surgery Family History (Updated 02/12/25 @ 10:17 by Jada Larson) Other Heart disease Social History (Updated 02/12/25 @ 10:44 by Jada Larson) Smoking Status: Former smoker Tobacco: How many years used: 20 smoking status stop date: 07/27/21 alcohol intake: never HPI HPI Details: SULEMA HERNANDEZ, is a 39 F who presents to the office today for concerns regarding running out of medications. She recently relocated from [place] and has not establish care with a local primary care provider. She has run out of medication and is concerned that her anxiety is worsening. ROS Const Constitutional: No body ache, chills, fatigue, fever(s) or weakness ENT ENT: No nosebleed/epistaxis Resp Respiratory: No cough, change in phlegm color, chest congestion, excessive phlegm production, hemoptysis or shortness of breath Cardio Cardiology: No chest pain at rest, chest pain with exertion or lightheadedness Gastro GI: No Vomiting blood/hematemesis or Black,tarry stools Genitourinary-Female: No Frequent nighttime urination/ nocturia Neuro Neurology: No dizziness or weakness Endo Endocrine: No fatigue Exam Const General: cooperative, healthy appearing, comfortable and no acute distress Nutritional Appearance: average body habitus and well nourished Orientation: alert, awake and oriented x3 HENMT Head: normal to inspection Ears: hearing grossly normal bilaterally Nose: external nose normal Face and sinus: face symmetric Mouth: moist mucous membranes Eyes General: appearance normal, both eyes and all related structures Eyelids: eyelids normal EOM: EOM intact bilaterally Neck Neck: normal visual inspection Carotids: normal carotid upstroke Chest Chest palpation inspection: normal inspection of the chest Resp Effort Inspection: normal respiratory effort, symmetric chest movement and no cough Auscultation: Bilateral: Clear to Auscultation Cardio Rate: regular rate Rhythm: regular rhythm Heart Sounds: S1 normal, S2 normal, no gallops, no murmurs and no rubs GI Inspection: normal to inspection Skin General: no rashes or lesions noted Neuro General: patient alert, patient awake, patient oriented x3 and CN's II-XI intact bilaterally Coding Level of Care Code Off vis,new,level 3 Diagnoses Hyperlipidemia E78.5 Tremors of nervous system R25.1 Depression F32.A Anxiety F41.9 Assessment and Plan Assessment and Plan (1) Hyperlipidemia: Status: Acute Plan: On account of this, she is on atorvastatin. Will send a short-term supply until she established with primary care provider. A referral for internal medicine team placed. (2) Tremors of nervous system: Status: Acute Plan: On account of this, she is on propranolol. Will send short-term prescription. (3) Depression: Status: Acute Plan: On account of this, she is on Lexapro. Will send short course supply until she establish with primary care provider. (4) Anxiety: Status: Acute Plan: Will send a short-term supply of her Ativan to assist. Orders: Referrals Family Practice E78.5 - Hyperlipidemia, unspecified, (more content not included)... Normal [facility] MRI KNEE W/O CONTRAST RIGHTo n 12-26-2024 MRI KNEE W/O CONTRAST RIGHT ORIGINAL EXAMINATION: MRI OF THE RIGHT KNEE WITHOUT CONTRAST, 12/26/2024 10:23 am TECHNIQUE: Multiplanar multisequence MRI of the right knee was performed without the administration of intravenous contrast. COMPARISON: None. HISTORY: ORDERING SYSTEM PROVIDED HISTORY: Reason for Exam: Sprain of unspecified site of right knee, initial encounter Anterolateral knee pain FINDINGS: Bone marrow edema involving the posterolateral tibial plateau surrounding subchondral linear low signal line which may reflect subchondral trabecular micro fracturing. Bone marrow edema is also seen in the anteromedial tibial plateau. The anterior cruciate ligament is intact. The posterior cruciate ligament is intact. The medial collateral ligament is intact. The iliotibial band is intact. The fibular collateral ligament, popliteus tendon, and biceps femoris tendon are intact. The medial meniscus is intact. There are no displaced medial meniscal fragments. The lateral meniscus is intact. There are no displaced lateral meniscal fragments. Articular cartilage in the medial and lateral compartments is intact. There is some areas of reparative fibrocartilage formation in the patellofemoral compartment involving the patellar apex where there is focal deep chondral fissuring with questionable chondral flap (series 10, image 23). There also some areas of deep chondral fibrillation involving the medial patellar facet where there is reactive subchondral cystic change. The extensor mechanisms appear intact. Mild edema in the superolateral aspect of Hoffa's fat pad. There is no joint effusion, synovitis, displaced intra-articular body or erosion. There is no Berrios's cyst. There is no muscle atrophy, tear or denervation edema. Neurovascular bundles appear intact. IMPRESSION: 1. Bone marrow edema/contusion involving the posterolateral tibial plateau with subchondral linear low signal which may reflect subchondral trabecular micro fracturing. Additional marrow edema/contusion present in the anteromedial tibial plateau. 2. Deep chondral fissuring with reparative fibrocartilage formation involving the patellar apex with questionable chondral flap. Additional areas of deep chondral fibrillation involving the medial patellar facet with reactive subchondral cystic change. 3. Mild edema in the superolateral aspect of Hoffa's fat pad, this may be related to lateral patellar friction syndrome. 4. Additional incidental findings as above Interpreted by: Maude Cruz Preliminary Report By: Maude Cruz Electronically signed By Maude Cruz Dictated Date: 12/26/2024 10:44:36 AM Prelim Date: 12/26/2024 10:55:00 AM Sign Date: 12/26/2024 10:55:00 AM Ordering Provider: ANDREA KEITH [facility]20[facility] SULEMA HERNANDEZ ([id number]) 1985 F Date Time Provider Department 12/06/24 [facility] During your visit today, we recorded the following information about you: Stefania Keith MA 12/06/2024 8:37 AM Signed Patient calling and states she took the control for a week and her hands started to get a bumpy rash with blisters on her hands. The nurse at her employer told her she was having the reaction. Patient stopped the medication and the rash went away. Patient is asking for a different control? Allergies As of Date: 12/06/2024 Noted Allergy Reaction METFORMIN 10/10/2024 6 - Diarrhea 13 - Dystonia 11 - Vomiting PAXIL (PAROXETINE) 10/10/2024 1 - Mental Status Change ZYRTEC (CETIRIZINE) 10/10/2024 10 - Anaphylaxis Date Reviewed: 11/07/2024 Reviewed by: Kristi, Norma, MA - Fully Assessed Reason for Visit: Reaction to control medication [Other] Primary Visit Diagnosis:PCOS (polycystic ovarian syndrome) [E28.2] Order(s):norgestimate-ethiny l estradiol (AEH-LS-TYJDXEJF) 0.18/0.215/0.25 mg-0.025 mg tabletTake 1 tablet by mouth once daily.Disp: 84 tabletRfl: 0 Prescriptions as of 12/20/2024 - norgestimate-ethinyl estradiol (QFK-IR-STYQOAQO) 0.18/0.215/0.25 mg-0.025 mg tablet Take 1 tablet by mouth once daily. - btpajgesq-avoyl-bkazi-jose antonio-l av 0.5-25-12.5 mg chew Take 2 Each by mouth once daily. Problem List As Of Date: 12/06/2024 (None) Prescriptions ordered this encounter Disp Refills Start End NORGESTIMATE 0.18 MG/0.215MG/0.25 MG* 84 t* 0 12/20/2024 Route: PO Sig: Take 1 tablet by mouth once daily. Medications Discontinued During This Encounter Prescriptions - norgestimate 0.25 mg-ethinyl estradiol 35 mcg 0.25-35 mg-mcg per tablet (Discontinued) Take 1 tablet by mouth once daily. Encounter Status:Closed by [facility]NER on 12/20/24 [facility] CNOV[facility]ngel 11-07-2024 CNOV Office Visit (ENWSTR ) SULEMA HERNANDEZ ([id number]) 1985 F Date Time Provider Department 11/07/24 11:20 AM [facility] ENWALTERTR During your visit today, we recorded the following information about you: Temperature Pulse Blood pressure Weight 98.7 degrees 89/minute 136/76 93.7 kg Last Period 10/04/24 [facility] MD 11/07/2024 11:28 PM Signed Endocrinology and Metabolism [place] Follow up note HPI Sulema Hernandez is a 39 year old female presenting for follow up of irregular cycles She moved from [place] to [place] in February 2024 and has established with us. Initial/last visit 10/10/24 History as per prior documentation, Hirsutism started: last year or more, upper lip, lower jaw, and chin, chest - thick black hair Patient uses mechanical hair removal (i.e. tweezers/waxing/shaving): electric razor, every other day on face, on chest with tweezers once weekly Hair loss significant History of deepening of voice: No History of change in genitalia: No LMP: 05/29/2024 Menstrual flow: 5 to 6 days Menarche: 14 years old, always irregular and heavy since Periods got worse after having kids, more irregular. For the last few years, she was having very heavy bleeding she had to change pads every hr, or change clothes Last 2 years , no bleeding or spotting, tried progesterone for 60 days or so, every day Had one period last month and this month - heavy, 5 to 6 days Number of Pregnancies: 2, breast feeding done for second child- first at 19, second at 19, no miscarriages Planning a : no Currently taking oral contraception: no Hot flashes - significant Tremors +, she was on propranolol, this medication helped but stopped when moved to [place] after running out Rashes on arms - purple red, worsens in sun. She could not tell about facial rash, as she does not look in the mirror after going out in Sun She is on no medications or supplements at this time, except melatonin She reports my temper is quicker She has symptoms with control pills like mastalgia She does not have any changes in shoe size She c/o joint pains She was advised to take control pills for POCS by Igor, but she does not prefer this. Progesterone only tablets used, but she could not tolerate this either She was on aldactone for 1 year did not help- she could not specify the dose, increased dose 2 times, but not helped with rage or hirsutism Metformin used, makes her sick- she would have to lie down to few hours, sleepy for few hours, diarrhea and Vomiting when she woke up, dizziness She was followed by [facility] [place], being treated for PCOS. She had CT adrenal, MRI pituitary done. No results available for us now. 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 PAST SURGICAL HISTORY: No past surgical history on file. FAMILY HISTORY: No family history on file. SOCIAL HISTORY: Social History Tobacco Use Smoking status: Former Types: Cigarettes Passive exposure: Past Smokeless tobacco: Never Vaping Use Vaping status: current everyday user Substances: Nicotine, Flavoring Devices: Disposable Substance Use Topics Alcohol use: Not Currently Drug use: Not Currently MEDICATIONS: Current Outpatient Medications on File Prior to Visit Medication Sig qyylfdrke-ebmiz-arzhs-jose antonio-l av 0.5-25-12.5 mg chew Take 2 Each by mouth once daily. No current facility-administered medications on file prior to visit. ALLERGIES: ALLERGIES Allergen Reactions Metformin Diarrhea, Dystonia, Vomiting Paxil [Paroxetine] Mental Status Change Zyrtec [Cetirizine] Anaphylaxis ROS 10 point ROS was reviewed and negative unless indicated in the HPI PHYSICAL EXAM BP 136/76 (BP Site: Right Arm, BP Position: Sitting, BP Cuff Size: Large Adult) Pulse 89 Temp 37.1 ?C (98.7 ?F) (Temporal Artery) Wt 93.7 kg (206 lb 9.6 oz) LMP 10/04/2024 (Approximate) SpO2 99% BMI 37.79 kg/m? General Appearance: Well appearing, alert, in no acute distress, well-hydrated, obese body habitus Skin: Skin color, texture, turgor normal, no suspicious rashes or lesions. Eyes: Anicteric sclera. Extraocular movements are intact. No lid lag or proptosis Neck: Supple, no adenopathy; thyroid symmetric, normal size, no bruits. Lungs:: unlabored breathing on room air Heart: Regul (more content not included)... Normal [facility] 5OH-indoleacetate 24h Ur-mRa janel 10-19-2024 5-Hydroxyindoleace vasquez (24H U) [Mass/Time] 4.0 mg/24hrs Normal <7.7 [facility] Comment on above: Order Comment: Speci men Type: URINE SPECIMEN Ordering Facility: [facility] Address: [address] [place] [address] Result Comment: 5-Hy droxyindoleacetic Acid (5-HIAA) test performed by Liquid Chromatography Tandem Mass Spectrometry (LC-MS/MS). Results obtained with different methods or kits cannot be used interchangeably. This test was developed, and its performance characteristics determined by the [facility] Department of Pathology and Laboratory Medicine. It has not been cleared or approved by the FDA. The [facility] Department of Pathology and Laboratory Medicine is regulated under CLIA as qualified to perform high-complexity testing. This test is used for clinical purposes. It should not be regarded as investigational or for research. Performed By: #### 1 695-6 #### [facility] CLIA [id number] [address] [place] [address] [place] PERIOD (HRS) 24 hr Normal [facility] Comment on above: Order Comment: Speci men Type: URINE SPECIMEN Ordering Facility: [facility] Address: [address] [place] [address] Performed By: #### 1 695-6 #### [facility] CLIA [id number] [address] [place] [address] [place] Order Comment: Speci men Type: BLOOD SPECIMEN Ordering Facility: [facility] Address: [address] [place] [address] Performed By: #### 1 0501-5, DHEAS, 2243-4, 32447-6 #### [facility] CLIA [id number] [address] [place] [address] [place] Specimen volume (24H U) 1.2 L Normal [facility] Comment on above: Order Comment: Speci men Type: URINE SPECIMEN Ordering Facility: [facility] Address: [address] [place] [address] Performed By: #### 1 695-6 #### [facility] CLIA [id number] [address] [place] [address] [place] Order Comment: Speci men Type: BLOOD SPECIMEN Ordering Facility: [facility] Address: [address] [place] [address] Performed By: #### 1 0501-5, DHEAS, 2243-4, 88655-3 #### [facility] CLIA [id number] [address] [place] [address] [place] CREATININE, 24 HOUR URINEon 10-19-2024 Creatinine (24H U) [Mass/Time] 1.546 g/24 hr Normal 0.800-1.800 [facility] Comment on above: Order Comment: Speci men Type: BLOOD SPECIMEN Ordering Facility: [facility] Address: [address] [place] [address] Performed By: #### 1 0501-5, DHEAS, 2243-4, 48209-6 #### [facility] [place] [id number] [address] [place] [address] [place] DHEA-S BLDon 10-19-2024 DHEA-S [Mass/Vol] 176.5 ug/dL Normal 60.9-337.0 [facility] Comment on above: Order Comment: Speci men Type: BLOOD SPECIMEN Ordering Facility: [facility] Address: [address] [place] [address] Result Comment: Refe rence ranges are age and gender specific. For additional information, reference range tables can be found in the laboratory test directory. The normal values are based on the following source: Dehydroepiandrosterone sulfate (DHEA S) [package insert V 17.0 Qatari]. [facility], [place], [place]: February 2013. Performed By: #### 1 0501-5, DHEAS, 2243-4, 06039-2 #### [facility] CLIA [id number] [address] [place] [address] [place] Estradiol SerPl-mCncon 10-19 E2 [Mass/Vol] 41 pg/mL Normal [facility] Comment on above: Order Comment: Speci men Type: BLOOD SPECIMEN Ordering Facility: [facility] Address: [address] [place] [address] Result Comment: This test is not suitable for patients receiving treatment with the drug Fulvestrant (Faslodex). The drug causes an interference leading to falsely elevated estradiol results. Menstrual cycle Estradiol reference ranges: Follicular : < 234 pg/mL Ovulation : 41 to 398 pg/mL Luteal : < 342 pg/mL Estradiol reference ranges vary by gestational period: First trimester : 154 to 3243 pg/mL Second trimester : 1561 to 63899 pg/mL Third trimester : 8285 to >46692 pg/mL Post-menopausal Estradiol reference range: < 41 pg/mL Reference: 1. Estradiol - E2 (Estradiol III) [package insert V 3.0 Qatari]. [facility], [place], [place], December 2015. Performed By: #### 1 0501-5, DHEAS, 2242-, 65911-3 #### [facility] CLIA [id number] [address] [place] [address] [place] FSH SerPl-aCncon 10-19-2024 Follitropin Qn 6.3 m[IU]/mL Normal See comment [facility] Comment on above: Order Comment: Speci men Type: BLOOD SPECIMEN Ordering Facility: [facility] Address: [address] [place] [address] Result Comment: Refe rence range: Follicular: 3.5-12.5 mIU/mL Ovulation: 4.7-21.5 mIU/mL Luteal: 1.7-7.7 mIU/mL Postmenopausal: 25.8-134.8 mIU/mL Performed By: #### 1 0501-5, DHEAS, 2242-10, 64828-1 #### [facility] CLIA [id number] [address] [place] [address] [place] HYDROXYPROGESTERONE-17on 03- 26-2025 17-HYDROXYPROGESTE MIL QUANTITATIVE BY HPLC-MS/MS, SERUM OR PLASMA 74.73 ng/dL Normal <=206.00 [facility] Comment on above: Order Comment: Speci men Type: BLOOD SPECIMEN Ordering Facility: [facility] Address: [address] [place] [address] Result Comment: INTE RPRETIVE INFORMATION for 17-Hydroxyprogesterone in females: Follicular 15 to 70 ng/dL Luteal 35 to 290 ng/dL REFERENCE INTERVAL: 17-Hydroxyprogesterone Qnt, HPLC-MS/MS Access complete set of age- and/or gender-specific reference intervals for this test in the [facility] Test Directory ([employer]). This test was developed and its performance characteristics determined by [facility]. It has not been cleared or approved by the US Food and Drug Administration. This test was performed in a CLIA certified laboratory and is intended for clinical purposes. Performed By: [facility] [address] [place] [address] Shoe Cleaner: Vikram Del Valle MD, PhD CLIA Number: [id number] Performed By: #### 1 0501-5, DHEAS, 2243-4, 23211-7 #### [facility] CLIA [id number] [address] [place] [address] [place] INSULIN LIK GR FAC Ion 10-19 INSULIN LIK GR FAC 1 165 ng/mL Normal 79-276 [facility] Comment on above: Order Comment: Speci men Type: BLOOD SPECIMEN Ordering Facility: [facility] Address: [address] [place] [address] Performed By: #### I LGF1 #### [facility] CLIA [id number] [address] [place] [address] [place] Insulin SerPl-aCncon 025 Insulin Qn 39.8 uU/mL High 2.6-24.9 [facility] Comment on above: Order Comment: Speci men Type: BLOOD SPECIMEN Ordering Facility: [facility] Address: [address] [place] [address] Performed By: #### 1 0501-5, DHEAS, 2243-4, 07993-9 #### [facility] CLIA [id number] [address] [place] [address] [place] LH SerPl-aCncon 10-19-2024 Lutropin Qn 8.1 m[IU]/mL Normal See comment [facility] Comment on above: Order Comment: Speci men Type: BLOOD SPECIMEN Ordering Facility: [facility] Address: [address] [place] [address] Result Comment: Refe rence range: Follicular: 2.4-12.6 mIU/mL Midcycle: 14.0-95.6 mIU/mL Luteal: 1.0-11.4 mIU/mL Post [place]: 7.7-58.5 mIU/mL Performed By: #### 1 0501-5, DHEAS, 2242-10, 72798-0 #### [facility] CLIA [id number] [address] [place] [address] [place] METANEPHRINES 24H URon 10-19 Metanephrines (24H U) [Mass/Time] 414 ug/24 hr Normal 140-785 [facility] Comment on above: Order Comment: Speci men Type: BLOOD SPECIMEN Ordering Facility: [facility] Address: [address] [place] [address] Result Comment: Urin e Metanephrine test performed by Liquid Chromatography Tandem Mass Spectrometry (LC-MS/MS). Results obtained with different methods or kits cannot be used interchangeably. This test was developed, and its performance characteristics determined by the [facility] Department of Pathology and Laboratory Medicine. It has not been cleared or approved by the FDA. The [facility] Department of Pathology and Laboratory Medicine is regulated under CLIA as qualified to perform high-complexity testing. This test is used for clinical purposes. It should not be regarded as investigational or for research. Performed By: #### 1 0501-5, DHEAS, 2243-4, 80936-3 #### [facility] CLIA [id number] [address] [place] [address] [place] NORMETANEPHRINES, UR 328 ug/24 hr Normal 88-444 [facility] Comment on above: Order Comment: Speci men Type: BLOOD SPECIMEN Ordering Facility: [facility] Address: [address] [place] [address] Performed By: #### 1 0501-5, DHEAS, 2243-4, 66937-8 #### [facility] CLIA [id number] [address] [place] [address] [place] Prolactin SerPl-mCncon 10-19 Prolactin [Mass/Vol] 10.8 ng/mL Normal 4.4-33.8 [facility] Comment on above: Order Comment: Speci men Type: BLOOD SPECIMEN Ordering Facility: [facility] Address: [address] [place] [address] Result Comment: Prol actin test is performed using the [facility] Electrochemiluminescence Immunoassay method. Results obtained with different methods or kits cannot be used interchangeably. Performed By: #### 3 024-7, 3016-3, 2842-3 #### [facility] CLIA [id number] [address] [place] [address] [place] T4 Free SerPl-mCncon 025 Free T4 [Mass/Vol] 1.0 ng/dL Normal 0.9-1.7 [facility] Comment on above: Order Comment: Speci men Type: BLOOD SPECIMEN Ordering Facility: [facility] Address: [address] [place] [address] Performed By: #### 3 024-7, 3016-3, 2842-3 #### [facility] CLIA [id number] [address] [place] [address] [place] TESTOSTERONE, BIOAVAILABLE A ND TOTAL BY MS (ADULT FEMALES, CHILDREN, OR INDIVIDUALS ON TESTOSTERONE-SUPPRESSING THERAPY)on 10-19-2024 SEX HORMONE BIND GLB 23 nmol/L Low 25-122 [facility] Comment on above: Order Comment: Speci men Type: BLOOD SPECIMEN Ordering Facility: [facility] Address: [address] [place] [address] Result Comment: REFE RENCE INTERVAL: Sex Hormone Binding Globulin Access complete set of age- and/or gender-specific reference intervals for this test in the [facility] Test Directory ([employer]). Performed By: #### 1 0501-5, DHEAS, 2243-4, 01760-1 #### [facility] CLIA [id number] [address] [place] [address] [place] TESTO BIOAVAILABLE 40.8 ng/dL High 4.1-25.5 [facility] Comment on above: Order Comment: Speci men Type: BLOOD SPECIMEN Ordering Facility: [facility] Address: [address] [place] [address] Result Comment: REFE RENCE INTERVAL: Testosterone, Bioavailable by Drafting Supervisor Females: Postmenopausal: 1.5 - 9.4 ng/dL INTERPRETIVE INFORMATION: Testosterone, Bioavailable by Drafting Supervisor Bioavailable testosterone concentration is calculated using total testosterone (measured by mass spectrometry) and the binding constant of testosterone and sex hormone-binding globulin (SHBG) and/or albumin. For individuals on testosterone-suppressing hormone therapies (e.g., antiandrogens or estrogens), refer to cisgender female reference intervals. For a complete set of all established reference intervals, refer to [employer]/Tests/Pub/[id number]. Performed By: #### 1 0501-5, DHEAS, 2243-4, 59022-6 #### [facility] CLIA [id number] [address] [place] [address] [place] TESTOSTERONE FREE 15.6 pg/mL High 1.3-9.[address] [facility] Comment on above: Order Comment: Speci men Type: BLOOD SPECIMEN Ordering Facility: [facility] Address: [address] [place] [address] Result Comment: REFE RENCE INTERVAL: Testosterone, Free by Drafting Supervisor Females Postmenopausal: 0.6 - 3.8 pg/mL INTERPRETIVE INFORMATION: Testosterone, Free by Drafting Supervisor Free testosterone concentration is calculated using total testosterone (measured by mass spectrometry) and the binding constant of testosterone and sex hormone-binding globulin (SHBG). For individuals on testosterone-suppressing hormone therapies (e.g., antiandrogens or estrogens), refer to cisgender female reference intervals. For a complete set of all established reference intervals, refer to [employer]/Tests/Pub/[id number]. This test was developed and its performance characteristics determined by [facility]. It has not been cleared or approved by the US Food and Drug Administration. This test was performed in a CLIA certified laboratory and is intended for clinical purposes. Performed By: [facility] [address] [place] [address] Shoe Cleaner: Vikram Del Valle MD, PhD CLIA Number: [id number] Performed By: #### 1 0501-5, DHEAS, 2242-10, 47219-3 #### [facility] CLIA [id number] [address] [place] [address] [place] TESTOSTERONE TOTAL 75 ng/dL High 9-55 [facility] Comment on above: Order Comment: Speci men Type: BLOOD SPECIMEN Ordering Facility: [facility] Address: [address] [place] [address] Result Comment: REFE RENCE INTERVAL: Testosterone by Drafting Supervisor Females Premenopausal 9-55 ng/dL Postmenopausal 5-32 ng/dL INTERPRETIVE INFORMATION: Testosterone by Drafting Supervisor Free or bioavailable testosterone measurements may provide supportive information. For individuals on testosterone-suppressing hormone therapies (e.g., antiandrogens or estrogens), refer to cisgender female reference intervals. For a complete set of all established reference intervals, refer to [employer]/Tests/Pub/[id number]. This test was developed and its performance characteristics determined by [facility]. It has not been cleared or approved by the US Food and Drug Administration. This test was performed in a CLIA certified laboratory and is intended for clinical purposes. Performed By: #### 1 0501-5, DHEAS, 22409-27, 15756-5 #### [facility] CLIA [id number] [address] [place] [address] [place] TSH SerPl-aCncon 03-26-2025 TSH Qn 1.520 m[IU]/L Normal 0.270-4.200 [facility] Comment on above: Order Comment: Speci men Type: BLOOD SPECIMEN [facility] [facility] Address: [address] [place] [address] Result Comment: If t he patient is , TSH reference range varies by gestational period: First Trimester (weeks 9-12): 0.180-2.990 mIU/L Second Trimester: 0.110-3.980 mIU/L Third Trimester: 0.480-4.710 mIU/L Christoph Zayas et al. A Practical Approach for the Verifications and Determination of Site- and Trimester-Specific Reference Intervals for Thyroid Function tests in . Thyroid, 2019:29:3:412-420. Antonio Espinosa, et al. 2017 Guidelines of the [place] [employer] for the Diagnosis and Management of Thyroid Disease during and the . Thyroid, 2017:27:3:315-389. 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 She moved from [place] to [place] in February 2024 Hirsutism started: last year or more, upper lip, lower jaw, and chin, chest - thick black hair Patient uses mechanical hair removal (i.e. tweezers/waxing/shaving): electric razor, every other day on face, on chest with tweezers once weekly Hair loss significant History of deepening of voice: No History of change in genitalia: No LMP: 05/29/2025 Menstrual flow: 5 to 6 days Menarche: 14 years old, always irregular and heavy since Periods got worse after having kids, more irregular. For the last few years, she was having very heavy bleeding she had to change pads every hr, or change clothes Last 2 years , no bleeding or spotting, tried progesterone for 60 days or so, every day Had one period last month and this month - heavy, 5 to 6 days Number of Pregnancies: 2, breast feeding done for second child- first at 19, second at 19, no miscarriages Planning a : no Currently taking oral contraception: no Hot flashes - significant Tremors +, she was on propranolol, this medication helped but stopped when moved to [place] after running out Rashes on arms - purple red, worsens in sun. She could not tell about facial rash, as she does not look in the mirror after going out in Sun She is on no medications or supplements at this time, except melatonin She reports my temper is quicker She has symptoms with control pills like mastalgia She does not have any changes in shoe size She c/o joint pains She was advised to take control pills for POCS by Endo, but she does not prefer this. Progesterone only tablets used, but she could not tolerate this either She was on aldactone for 1 year did not help- she could not specify the dose, increased dose 2 times, but not helped with rage or hirsutism Metformin used, makes her sick- she would have to lie down to few hours, sleepy for few hours, diarrhea and Vomiting when she woke up, dizziness She was followed by [facility] end[facility] of [place], being treated for PCOS. She had CT adrenal, MRI pituitary done. No results available for us now. 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 PAST SURGICAL HISTORY: No past surgical history on file. FAMILY HISTORY: No family history on file. SOCIAL HISTORY: MEDICATIONS: Current Outpatient Medications on File Prior to Visit Medication Sig misnysjgn-eixfm-bcvmu-jose antonio-l av 0.5-25-12.5 mg chew Take 2 Each by mouth once daily. No current facility-administered medications on file prior to visit. ALLERGIES: ALLERGIES Allergen Reactions Metformin Diarrhea, Dystonia, Vomiting Paxil [Paroxetine] Mental Status Change Zyrtec [Cetirizine] Anaphylaxis ROS 10 point ROS was reviewed and negative unless indicated in the HPI PHYSICAL EXAM BP 144/90 (BP Site: Right Arm, BP Position: Sitting, BP Cuff Size: Regular Adult) Pulse 77 Temp 37.1 ?C (98.7 ?F) (Temporal Artery) Ht 157.5 cm (5' 2) Wt 93.5 kg (206 lb 3.2 oz) SpO2 96% BMI 37.71 kg/m? General Appearance: Well appearing, alert, in no acute distress, well-hydrated, well nourished, obese body habitus Skin: Skin color, texture, turgor normal, no suspicious rashes or lesions. Eyes: Anicteric sclera. Extraocular movements are intact. Neck: Supple, no adenopathy; thyroid symmetric, normal size, no bruits. Lungs:: unlabored breathing on room air Heart: Regular rate and rhythm Abdomen: Normal abdominal exam, Abdomen soft, non-tender. No wide striae, has slightly dark thin striae which she reported was from Extremities: No deformities, edema, skin discoloration, clubbing or cyanosis. Has coarse tremors in b/l outstretched hands Musculoskeletal: No joint swelling, deformity, or tenderness. Peripheral Pulses: Normal. Neurologic: Gait normal. Reflexes decreased and symmetric. PREVIOUS DATA Diagnostic tests/Imaging reviewed for today's visit: None available- request sent ASSESSM (more content not included)... Normal [facility] Vital Signs Date Time Vital Sign Value Performing Clinician Facility 04-05-2025 09:16-0400 Body height 157.48 cm Carmen Ungerer 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 Work Phone: [facility] 04-05-2025 09:16-0400 Body mass index (BMI) [Ratio] 37.8 kg/m2 Carmen Ungerer 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 Work Phone: [facility] 04-05-2025 09:16-0400 Body temperature 97.4 [degF] Carmen Ungerer 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 Work Phone: [facility] 04-05-2025 09:16-0400 Body weight 93.89 kg Carmen Ungerer 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 Work Phone: [facility] 04-05-2025 09:16-0400 Diastolic blood pressure 80 mm[Hg] Carmen Ungerer 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 Work Phone: [facility] 04-05-2025 09:16-0400 Heart rate 86 /min Carmen Ungerer 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 Work Phone: [facility] 04-05-2025 09:16-0400 Respiratory rate 18 /min Carmen Ungerer 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 Work Phone: [facility] 04-05-2025 09:16-0400 SaO2% (BldA) [Mass fraction] 97 % Carmen Ungerer 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 Work Phone: [facility] 04-05-2025 09:16-0400 Systolic blood pressure 131 mm[Hg] Carmen Ungerer 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 Work Phone: [facility] 03-19-2025 09:37-0400 Body mass index (BMI) [Ratio] 38.43 kg/m2 Mehreen Green MD Work Phone: [facility] 03-19-2025 09:37-0400 Body temperature 98.01 [degF] Mehreen Green MD Work Phone: [facility] 03-19-2025 09:37-0400 Body weight 95.3 kg Mehreen Green MD Work Phone: [facility] 03-19-2025 09:37-0400 Diastolic blood pressure 76 mm[Hg] Mehreen Green MD Work Phone: [facility] 03-19-2025 09:37-0400 Heart rate 70 /min Mehreen Green MD Work Phone: [facility] 03-19-2025 09:37-0400 Respiratory rate 18 /min Mehreen Green MD Work Phone: [facility] 03-19-2025 09:37-0400 SaO2% (BldA) [Mass fraction] 98 % Mehreen Green MD Work Phone: [facility] 03-19-2025 09:37-0400 Systolic blood pressure 118 mm[Hg] Mehreen Green MD Work Phone: [facility] 02-24-2025 15:01-0400 Body height 157.48 cm Ced Castro 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 Work Phone: [facility] 02-24-2025 15:01-0400 Body mass index (BMI) [Ratio] 38.4 kg/m2 Ced Castro 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 Work Phone: [facility] 02-24-2025 15:01-0400 Body temperature 97.7 [degF] Ced Castro 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 Work Phone: [facility] 02-24-2025 15:01-0400 Body weight 95.25 kg Ced Castro 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 Work Phone: [facility] 02-24-2025 15:01-0400 Diastolic blood pressure 88 mm[Hg] Ced Castro 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 Work Phone: [facility] 02-24-2025 15:01-0400 Heart rate 94 /min Ced Castro 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 Work Phone: [facility] 02-24-2025 15:01-0400 Respiratory rate 18 /min Ced Castro 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 Work Phone: [facility] 02-24-2025 15:01-0400 SaO2% (BldA) [Mass fraction] 97 % Ced Castro 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 Work Phone: [facility] 02-24-2025 15:01-0400 Systolic blood pressure 142 mm[Hg] Ced Castro 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 Work Phone: [facility] 02-12-2025 10:44-0400 Body height 157.48 cm Ced Castro 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 Work Phone: [facility] 02-12-2025 10:44-0400 Body mass index (BMI) [Ratio] 38 kg/m2 Ced Castro 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 Work Phone: [facility] 02-12-2025 10:44-0400 Body weight 94.34 kg Ced Castro 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 Work Phone: [facility] 02-12-2025 10:44-0400 Diastolic blood pressure 70 mm[Hg] eCd Castro 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 Work Phone: [facility] 02-12-2025 10:44-0400 Heart rate 85 /min Ced Castro 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 Work Phone: [facility] 02-12-2025 10:44-0400 Respiratory rate 16 /min Ced Castro 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 Work Phone: [facility] 02-12-2025 10:44-0400 SaO2% (BldA) [Mass fraction] 99 % Ced Castro 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 Work Phone: [facility] 02-12-2025 10:44-0400 Systolic blood pressure 114 mm[Hg] Ced Castro 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 Work Phone: [facility] 11-07-2024 11:13-0400 Body mass index (BMI) [Ratio] 37.79 kg/m2 Va Gardner MD Work Phone: [facility] 11-07-2024 11:13-0400 Body temperature 98.71 [degF] Va Gardnre MD Work Phone: [facility] 11-07-2024 11:13-0400 Body weight 93.71 kg Va Gardner MD Work Phone: [facility] 11-07-2024 11:13-0400 Diastolic blood pressure 76 mm[Hg] Va Gardner MD Work Phone: [facility] 11-07-2024 11:13-0400 Heart rate 89 /min Va Gardner MD Work Phone: [facility] 11-07-2024 11:13-0400 SaO2% (BldA) [Mass fraction] 99 % Va Gardner MD Work Phone: [facility] 11-07-2024 11:13-0400 Systolic blood pressure 136 mm[Hg] Va Gardner MD Work Phone: [facility] 10-10-2024 13:13-0400 Body height 157.5 cm Va Gardner MD Work Phone: [facility] 10-10-2024 13:13-0400 Body mass index (BMI) [Ratio] 37.71 kg/m2 Va Gardner MD Work Phone: [facility] 10-10-2024 13:13-0400 Body temperature 98.71 [degF] Va Gardner MD Work Phone: [facility] 10-10-2024 13:13-0400 Body weight 93.53 kg Va Gardner MD Work Phone: [facility] 10-10-2024 13:13-0400 Diastolic blood pressure 90 mm[Hg] Va Gardner MD Work Phone: [facility] 10-10-2024 13:13-0400 Heart rate 77 /min Va Gardner MD Work Phone: [facility] 10-10-2024 13:13-0400 SaO2% (BldA) [Mass fraction] 96 % Va Gardner MD Work Phone: [facility] 10-10-2024 13:13-0400 Systolic blood pressure 144 mm[Hg] Va Gardner MD Work Phone: [facility] Encounters Encounter Date Encounter Type Care Provider Facility Start: 04-20-2025 ambulatory Carmen Kolb Facilit y:[facility] Start: 04-19-2025 ambulatory Amando Durant Facility:[facility] Start: 04-14-2025 ambulatory [facility] Facility:[facility] Start: 04-05-2025 End: 04-05-[address] Amando Durant DO -[facility] Work Phone: Start: 04-05-2025 End: 04-05-2025 ambulatory Carmen Kolb 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 Work Phone: -[facility] Start: 03-19-2025 End: 03-19-2025 Subsequent hospital visit by physician Xr [facility] Work Phone: Radiology Comment on above: Left elbow pain [M25 .522] Start: 03-19-2025 End: 03-19-2025 Office outpatient new 45 minutes Mehreen Green MD Work Phone: [facility] Comment on above: Left elbow pain (Lupe kika Dx) Start: 03-19-2025 End: 03-19-2025 ambulatory MEHREEN GREEN Facility:[facility] Start: 02-24-2025 End: 02-24-2025 Patient encounter procedure Carmen Kolb 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 -[facility] Work Phone: Start: 02-24-2025 End: 02-24-2025 ambulatory Carmen Kolb -[facility] Start: 02-12-2025 End: 02-12-2025 Patient encounter procedure Ced Castro 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 -[facility] Work Phone: Start: 02-12-2025 End: 02-12-2025 ambulatory Ced Castro -[facility] Start: 12-26-2024 End: 12-26-2024 ambulatory ANDREA KEITH MD Facility:[facility] Start: 12-26-2024 End: 12-26-2024 Patient encounter procedure ANDREA KEITH MD [facility] Start: 12-06-2024 End: 12-20-2024 Telephone encounter Va Gardner MD Work Phone: Endocrinology Comment on above: Reaction to co ntrol medication Start: 11-07-2024 End: 11-07-2024 ambulatory VA GARDNER Facility:[facility] Start: 11-07-2024 End: 11-07-2024 Patient encounter procedure Va Gardner MD Work Phone: Endocrinology Comment on above: PCOS (polycystic ova abdifatah syndrome) (Primary Dx); Irregular periods/menstrual cycles Start: 10-19-2024 End: 10-19-2024 ambulatory VA GARDNER Facility:[facility] Start: 10-10-2024 End: 10-10-2024 ambulatory VA GARDNER Facility:[facility] Start: 10-10-2024 End: 10-10-2024 Patient encounter procedure Va Gardner MD Work Phone: Endocrinology Comment on above: Irregular periods/me nstrual cycles (Primary Dx); Hot flashes Procedures Date Procedure Procedure Detail Performing Clinician Start: 03-19-2025 Radex elbow complete minimum 3 views Mehreen Green MD Work Phone: Plan of Treatment Date Care Activity Detail Author Start: 03-27-2025 Influenza vaccination [facility] Start: 02-06-2025 End: 02-06-2025 Patient encounter procedure 02/06/2025 11:20 AM EDT Office Visit Endocrinology [address] [place] [id number] Va Gardner MD [address] [place] [id number] 3 month f/u-irregular periods Endocrinology Comment on above: 3 month f/u-irregula r periods Start: 12-06-2024 End: 12-06-2024 Patient encounter procedure 12/06/2024 3:00 PM EDT Office Visit Endocrinology [facility] [address] [place] [address] [place] [address] [place] [address] Irregular periods/menstrual cycles [N92.6]; PCOS (polycystic ovarian syndrome) [E28.2] Endocrinology [facility] Comment on above: Irregular periods/me nstrual cycles [N92.6]; PCOS (polycystic ovarian syndrome) [E28.2] Start: 11-07-2024 End: 11-07-2024 Patient encounter procedure 11/07/2024 11:20 AM EDT Office Visit Endocrinology [address] [place], [place] [id number] Va Gardner MD [address] [place], [place] [id number] 4 wk follow up Endocrinology Comment on above: 4 wk follow up Start: 10-10-2024 End: 01-09-2025 17-Hydroxyprogesterone [Mass/volume] in Serum or Plasma HYDROXYPROGESTERONE-17 Lab Routine Irregular periods/menstrual cycles Expected: 10/10/2024, Expires: 01/09/2025 [facility] Comment on above: Expected: 10/10/2024 , Expires: 01/09/2025 Start: 10-10-2024 End: 01-09-2025 CATECHOL, FRACT, 24-HR UR W/O CREATININE CATECHOL, FRACT, 24-HR UR W/O CREATININE Lab Routine Hot flashes Expected: 10/10/2024, Expires: 01/09/2025 [facility] Comment on above: Expected: 10/10/2024 , Expires: 01/09/2025 Start: 10-10-2024 End: 01-09-2025 DHEA-S BLD DHEA-S BLD Lab Routine Irregular periods/menstrual cycles Expected: 10/10/2024, Expires: 01/09/2025 [facility] Comment on above: Expected: 10/10/2024 , Expires: 01/09/2025 Start: 10-10-2024 End: 01-09-2025 Estradiol (E2) [Mass/volume] in Serum or Plasma ESTRADIOL-17B BLD Lab Routine Irregular periods/menstrual cycles Expected: 10/10/2024, Expires: 01/09/2025 [facility] Comment on above: Expected: 10/10/2024 , Expires: 01/09/2025 Start: 10-10-2024 End: 01-09-2025 Follitropin [Units/volume] in Serum or Plasma FOLLICLE STIMULATING HORMONE Lab Routine Irregular periods/menstrual cycles Expected: 10/10/2024, Expires: 01/09/2025 [facility] Comment on above: Expected: 10/10/2024 , Expires: 01/09/2025 Start: 10-10-2024 End: 01-09-2025 Insulin [Units/volume] in Serum or Plasma INSULIN, TOTAL, SERUM Lab Routine Irregular periods/menstrual cycles Expected: 10/10/2024, Expires: 01/09/2025 [facility] Comment on above: Expected: 10/10/2024 , Expires: 01/09/2025 Start: 10-10-2024 End: 01-09-2025 INSULIN LIK GR FAC I INSULIN LIK GR FAC I Lab Routine Hot flashes Expected: 10/10/2024, Expires: 01/09/2025 [facility] Comment on above: Expected: 10/10/2024 , Expires: 01/09/2025 Start: 10-10-2024 End: 01-09-2025 Lutropin [Units/volume] in Serum or Plasma LUTEINIZING HORMONE Lab Routine Irregular periods/menstrual cycles Expected: 10/10/2024, Expires: 01/09/2025 [facility] Comment on above: Expected: 10/10/2024 , Expires: 01/09/2025 Start: 10-10-2024 End: 01-09-2025 Prolactin [Mass/volume] in Serum or Plasma PROLACTIN Lab Routine Irregular periods/menstrual cycles Expected: 10/10/2024, Expires: 01/09/2025 [facility] Comment on above: Expected: 10/10/2024 , Expires: 01/09/2025 Start: 10-10-2024 End: 01-09-2025 TESTOSTERONE, BIOAVAILABLE AND TOTAL BY MS (ADULT FEMALES, CHILDREN, OR INDIVIDUALS ON TESTOSTERONE-SUPPRESSIN G THERAPY) TESTOSTERONE, BIOAVAILABLE AND TOTAL BY MS (ADULT FEMALES, CHILDREN, OR INDIVIDUALS ON TESTOSTERONE-SUPPRESSIN G THERAPY) Lab Routine Irregular periods/menstrual cycles Expected: 10/10/2024, Expires: 01/09/2025 [facility] Work Phone: Comment on above: Expected: 10/10/2024 , Expires: 01/09/2025 Start: 10-10-2024 End: 01-09-2025 Thyrotropin [Units/volume] in Serum or Plasma THYROID STIMULATING HORMONE Lab Routine Irregular periods/menstrual cycles Expected: 10/10/2024, Expires: 01/09/2025 [facility] Comment on above: Expected: 10/10/2024 , Expires: 01/09/2025 Start: 10-10-2024 End: 01-09-2025 Thyroxine (T4) free [Mass/volume] in Serum or Plasma T4 FREE/FREE THYROXINE Lab Routine Irregular periods/menstrual cycles Expected: 10/10/2024, Expires: 01/09/2025 [facility] Comment on above: Expected: 10/10/2024 , Expires: 01/09/2025 Start: 03-27-2024 Covid-19 Vaccine ( season) Covid-19 Vaccine ( season) [facility] Start: 03-27-2024 Influenza vaccination Influenza Vacc ine (#1) [facility] Start: 2013 HPV Vaccine (1 - 3-d ose SCDM series) HPV Vaccine (1 - 3-dose SCDM series) [facility] Start: 2007 Screening for malign ant neoplasm of cervix Cervical Cancer Screening [facility] Start: 2005 Hepatitis B Vaccine (1 of 3 - 19+ 3-dose series) Hepatitis B Vaccine (1 of 3 - 19+ 3-dose series) [facility] Start: 2005 Urine microalbumin profile DTaP,Tdap,Td Vaccine (1 - Tdap) [facility] Start: 02-14-2004 Anxiety Screening Anxiety Screening [facility] Start: 02-14-2004 Depression Screening Depression Scre ening [facility] Start: 02-14-2004 Hepatitis C screening Hepatitis C Sc reening [facility] Start: 02-14-2004 HIV screening HIV Screening [facility] 5-Hydroxyindoleaceta te [Mass/time] in 24 hour Urine HIAA-5 QUANT 24H UR Lab Routine Hot flashes Ordered: 10/10/2024 [facility] Comment on above: Ordered: 10/10/2024 CBC W Auto Different ial panel - Blood [facility] CREATININE, 24 HOUR URINE CREATININE, 24 HOUR URINE Lab Routine Hot flashes Ordered: 10/10/2024 [facility] Comment on above: Ordered: 10/10/2024 CT Chest WO contrast [facility] IgE [Units/volume] i n Serum or Plasma [facility] Measurement of respiratory function [facility] METANEPHRINES 24H UR METANEPHRIN ES 24H UR Lab Routine Hot flashes Ordered: 10/10/2024 [facility] Comment on above: Ordered: 10/10/2024 Walking distance 6 minutes [facility] Payers Date Payer Category Payer Self-pay 2025 Private Health Insurance [id number] 2025 Private Health Insurance [id number] 2024 Unknown [id number] 1985 Unknown [id number] Unknown [id number] Unknown [id number] Unknown [id number] Unknown [id number] Unknown [id number] Unknown [id number] Unknown [id number] Social History Date Type Detail Facility Tobacco smoking stat us [facility] Tobacco smoking consumption unknown [facility] Start: 10-10-2024 End: 11-07-2024 History of Social function [facility] Start: 10-10-2024 End: 11-07-2024 Area Deprivation Index [facility] Start: 09-07-2024 National Score (1-10 0), lower number is lower risk 75 [facility] Start: 1985 Sex assigned at Not on file [facility] Start: 11-07-2024 End: 04-05-2025 Tobacco smoking status [facility]IS Ex-smoker [facility] History of tobacco use Current smoker [facility] History of tobacco use Cigarette Smoker [facility] History of tobacco use Passive smoker [facility] Start: 11-07-2024 Tobacco use and exposure Smoke less tobacco non-user [facility] Start: 11-07-2024 End: 03-19-2025 Alcoholic beverage intake Ex-drinker (finding) [facility] Tobacco smoking status [facility] Start: 1985 Sex Assigned At Female A [facility] Start: 12-14-2024 Sex Female (finding) [facility] Functional Status Date Assessment Result Facility 10-19-2024 IGF-I Z-score SerPl -0.3 Damon tafoya [facility] Comment on above: Order Comment: Speci men Type: BLOOD SPECIMEN Ordering Facility: [facility] Address: [address] [place] [address] Performed By: #### I LGF1 #### [facility] CLIA [id number] [address] [place] [address] [facility] Clinical Notes 10-10-2024 to 03-19-2025 Patient InstructionsRenae Adams RT(R) - 03/19/2025 9:50 AM EDTTMehreen rodas MD - 03/19/2025 9:47 AM EDT Note Date & Type Note Facility 03-19-2025 Instructions Mehreen Green MD - 03/19/2025 10:01 AM EDT SPRAINS AND STRAINS BASIC INFORMATION Description: A strain is a stretched or torn muscle. A sprain is a stretched or torn ligament. Sprains occur most often in ankles, knees, or fingers, although any joint can be sprained. Sprained joints can function, but only with pain. Frequent Signs and Symptoms: - Pain or tenderness in the area of injury; severity varies with the extent of injury. - Swelling of the affected joint. - Redness or bruising in the area of injury, either immediately or several hours after injury. - Loss of normal mobility in the injured joint. Causes: Strains usually are associated with overuse injuries. Sprains usually occur secondary to trauma (fall, twisting injury or automobile accident). The ankel is injured most often because of its anatomical weakness, its exposed position, and the stress it sustains in athletic and recreational activities. It is difficult to differentiate sprains from strains. Risk Increases With: - Obesity . - Trauma. - Excessive exercise. - Poor conditioning. - Poor fitting shoes and high heeled shoes. - High-risk activities (skateboarding), contact spoints, ice and roller skating. Preventive Measures: - Maintain good level of physical fitness. - Wrap weak joints with support bandanges before strenuous activity. - Stretch muscles before and after exercise. - Strengthen weak muscles with rehabilitative exercises to prevent a recurrence. - Accident-proof your home. Expected Outcome: With appropriate treatment and rest, 6-8 weeks for recovery. May take longer depending on the severity of the injury. Possible Complications: - Permanent weakness if the sprain is severe or if a joint is sprained repeatedly. - Arthritis. TREATMENT General Measures: - Diagnostic tests may include x-rays of the injured area, or CT scan or MRI. -RICE therapy: rest, ice, compression, and elevation - Apply ice to the injured joint during the first [address] ice in a plastic bag and separate it from the skin with a thin towel. Hold it against the joint with your hand or an elastic bandage. Keep the ice pack on the joint up to 2 hours at a time either constantly or intermittently depending on your ability to tolerate the cold. Continue the ice treatment at 2-hour intervals for 24 hours. - After 24 hours, you may continue ice treatment or switch to heat. - To use heat, soak the joint in hot water or apply heat for 15 minutes every 2 hours or whenever possible. Don't apply heat during the first 24 hours. It may increase bleeding and swelling and prolong healing time. - Compression with an elastic (Amado) bandage. - Whenever possible, elevate the joint (especially while sleeping) so fluid can drain and diminish swelling. -Surgery may be necessary to repair badly torn ligaments. - a cast may be necessary for severespains or following surgery. Following cast removal, you will wear support bandages for a while. - Air cast type devices are very effective. - Learn how to use crutches, if needed. Medication: - You may use non-prescription pain relievers, such as acetaminophen or ibuprofen. If the sprain is severe, a stronger pain relivere may be prescribed. - Avoid aspirin, as it may increase the tendency to bleed. Activity: - Allow the joint to rest 1 or 2 days. Then begin exercising the joint gently, without putting weight on it. - Physical therapy may be recommended to regain strength and normal use of the joint. NOTIFY OUR OFFICE IF - You or a family member has a sprained joint that won't bear weight or move normally. - Pain becomes intolerable. - Swelling or bruising increases, despite treatment. Copyright 1994 by [employer] documented in this encounter [facility] 03-19-2025 History of Presen t illness Narrative Radiology Service Progress Note PATIENT NAME: Sulema Hernandez DATE OF SERVICE: March 19, 2025 TIME: 9:46 AM PATIENT IDENTITY VERIFICATION COMPLETED USING TWO (2) IDENTIFIERS: Name and Date of confirmed by patient verbally. FALL SCREENING: Has the patient had 2 falls in the last year or 1 fall with injury or currently using an Ambulatory Assistive Device (Walker, Cane, Wheelchair, Crutches, etc.)? No PATIENT GENDER DATA: Assigned female at . status: : No status: NO. 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 Author Type: Pattern Designer Type: Progress Notes Filed: 03/19/2025 09:58 Note Text: Radiology Service Progress Note PATIENT NAME: Sulema Hernandez DATE OF SERVICE: March 19, 2025 TIME: 9:46 AM PATIENT IDENTITY VERIFICATION COMPLETED USING TWO (2) IDENTIFIERS: Name and Date of confirmed by patient verbally. FALL SCREENING: Has the patient had 2 falls in the last year or 1 fall with injury or currently using an Ambulatory Assistive Device (Walker, Cane, Wheelchair, Crutches, etc.)? No PATIENT GENDER DATA: Assigned female at . status: : No status: NO. PATIENT RELEVANT IMPLANT DATA REVIEWED: Yes PATIENT PRESENTS WITH AN IMPLANTABLE OR ATTACHED TERRAZZO WORKER APPRENTICE: No RADIOLOGY DEPARTMENT: General X-ray: Exam(s) Completed: Upper Extremity X-Ray(s): Elbow, left PERIPHERAL IV DATA: Not applicable SIGNED BY: RT Richard(R) March 19, 2025 9:46 AM [facility] 03-19-2025 Note HNO ID: [id number] Author: MEHREEN GREEN MD Service: ? Author Type: Physician Type: Progress Notes Filed: 03/19/2025 10:07 Note Text: [facility] Subjective Sulema Hernandez is a 40 year old female. Patient presents with: left arm pain: X 3 days-uncertain what she did Pt here with left elbow are pain no limits to rOM no known injury pain around elbow radiates to forearm and upper arm no redness no fever no chills Review of Systems Constitutional: Negative for chills and fever. Musculoskeletal: Positive for arthralgias and myalgias. Negative for joint swelling. Skin: Negative for rash and wound. Neurological: Negative for weakness and numbness. Objective BP 118/76 Pulse 70 Temp 36.7 ?C (98 ?F) (Tympanic) Resp 18 Wt 95.3 kg (210 lb 1.6 oz) LMP 10/04/2024 (Approximate) SpO2 98% BMI 38.43 kg/m? Physical Exam Vitals and nursing note reviewed. Constitutional: Appearance: Normal appearance. She is not ill-appearing. Musculoskeletal: General: Tenderness present. No swelling, deformity or signs of injury. Normal range of motion. Skin: Capillary Refill: Capillary refill takes less than 2 seconds. Findings: No bruising, erythema or rash. Neurological: Mental Status: She is alert and oriented to person, place, and time. Sensory: No sensory deficit. Motor: No weakness. Coordination: Coordination normal. Deep Tendon Reflexes: Reflexes normal. {ASSESSMENT/PLAN: 1. Left elbow pain - ICD9: 719.42, ICD10: M25.522 Use sling for next few days follow up with orthopedist if needed - XR ELBOW SPECIAL VIEWS AP/LAT/OTHER LEFT - NAPROXEN 500 MG TABLET - CONSULT TO ORTHOPAEDICS Initial read is negative Mehreen Green MD History and Record Review External record(s) reviewed: prior outpatient record. Differential Diagnoses - elbow sprain is more likely for the following reason(s): suggested by HANDP and consistent with imaging - fracture is less likely for the following reason(s): no evidence on imaging Disposition The patient was discharged. Procedures [facility] 03-19-2025 History of Presen t illness Narrative [facility] [place] Sulema Ivy is a 40 year old female. Patient presents with: left arm pain: X 3 days-uncertain what she did Pt here with left elbow are pain no limits to rOM no known injury pain around elbow radiates to forearm and upper arm no redness no fever no chills Review of Systems Constitutional: Negative for chills and fever. Musculoskeletal: Positive for arthralgias and myalgias. Negative for joint swelling. Skin: Negative for rash and wound. Neurological: Negative for weakness and numbness. Objective BP 118/76 Pulse 70 Temp 36.7 C (98 F) (Tympanic) Resp 18 Wt 95.3 kg (210 lb 1.6 oz) LMP 10/04/2024 (Approximate) SpO2 98% BMI 38.43 kg/m Physical Exam Vitals and nursing note reviewed. Constitutional: Appearance: Normal appearance. She is not ill-appearing. Musculoskeletal: General: Tenderness present. No swelling, deformity or signs of injury. Normal range of motion. Skin: Capillary Refill: Capillary refill takes less than 2 seconds. Findings: No bruising, erythema or rash. Neurological: Mental Status: She is alert and oriented to person, place, and time. Sensory: No sensory deficit. Motor: No weakness. Coordination: Coordination normal. Deep Tendon Reflexes: Reflexes normal. {ASSESSMENT/PLAN: 1. Left elbow pain - ICD9: 719.42, ICD10: M25.522 Use sling for next few days follow up with orthopedist if needed - XR ELBOW SPECIAL VIEWS AP/LAT/OTHER LEFT - NAPROXEN 500 MG TABLET - CONSULT TO ORTHOPAEDICS Initial read is negative Mehreen Green MD History and Record Review External record(s) reviewed: prior outpatient record. Differential Diagnoses - elbow sprain is more likely for the following reason(s): suggested by H&P and consistent with imaging - fracture is less likely for the following reason(s): no evidence on imaging Disposition The patient was discharged. Procedures documented in this encounter [facility] 02-12-2025 Evaluation note Diagnosis Onset Date Resolution Anxiety acute February 12 10:02am Depression acute February 12 10:02am Hyperlipidemia acute February 12, 2025 10:02am Tremors of nervous system acute February 12, 2025 10:02am Anxiety acute February 24 2:52pm Depression acute February 24 2:52pm Family history of cardiac disorder acute February 24 2:52pm Hyperlipidemia acute February 2:52pm Melanoma acute February 24 2:52pm Multiple sclerosis acute February 24, 2025 2:52pm Tremors of nervous system acute February 24, 2025 2:52pm [facility] Work Phone: 1(915) 324-817207-20-2025 Evaluation note* Diagnosis Onset Date Resolution Status Admit Date Anxiety acute February 12 10:02am Depression acute February 12 10:02am Hyperlipidemia acute February 12, 2025 10:02am Tremors of nervous system acute February 12, 2025 10:02am Anxiety acute February 24 2:52pm Depression acute February 24 2:52pm Encounter to establish care with new provider acute February 24 2:52pm Hyperlipidemia acute February 2:52pm Multiple sclerosis acute February 24, 2025 2:52pm Tremors of nervous system acute February 24, 2025 2:52pm Asthma acute March 11:16am Lung nodule acute March 11:16am [facility] Work Phone: 1(319) 795-468307-20-2025 Progress [facility] [address], [address] [place] [id number] OFFICE VISIT Date of Service: 02/12/25 MR#: [id number] Acct: [id number] Name: SULEMA HERNANDEZ Rep #: [id number] : 1985 Provider: HAVEN Castro Age/Sex: 39/F Location: [facility] Status: Signed Intake Vital Signs 02/12/25 10:44 Height 5 ft 2 in Weight: 208 lb BMI 38.0 BP 114/70 Blood Pressure Location Lt brachial Position Sitting Respiration 16 Pulse 85 Pulse Source Monitor Pulse Oximetry (%) 99 Oxygen Delivery Method room air Intake Visit Reasons: MED DISCUSSION/SELF PAY Allergies gabapentin Allergy (Unknown, Verified 02/12/25 10:14) unknown paroxetine (From Paxil) Allergy (Unknown, Verified 02/12/25 10:14) unknown Medications ?Medication ?Instructions ?Recorded ?Confirmed ?Type atorvastatin 20 mg tablet (Lipitor) 20 mg PO QDAY #30 tabs 02/12/25 02/12/25 Rx escitalopram oxalate 20 mg tablet 20 mg PO QDAY #30 ta bs 02/12/25 02/12/25 Rx (Lexapro) lorazepam 2 mg tablet 5 mg (2.5 x 2 mg) PO TID PRN 02/12/25 02/12/25 Rx anxiety #21 tabs naproxen sodium 220 mg capsule 220 mg PO BID PRN 02/1202/12/25 History (Aleve) norgestimate 0.18 mg/0.215mg/0.25 1 tab PO QDAY 02/12/25 History mg-ethinyl estradiol 0.025 mg tablet propranolol 20 mg tablet 20 mg PO BID #60 tabs 02/12/25 Rx PFSH Medical History (Updated 02/12/25 @ 11:08 by Ced Castro 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 She recently relocated from [place] and has not establish care with a local primary care provider. She has run out of medication and is concerned that her anxiety is worsening. ROS Const Constitutional: No body ache, chills, fatigue, fever(s) or weakness ENT ENT: No nosebleed/epistaxis Resp Respiratory: No cough, change in phlegm color, chest congestion, excessive phlegm production, hemoptysis or shortness of breath Cardio Cardiology: No chest pain at rest, chest pain with exertion or lightheadedness Gastro GI: No Vomiting blood/hematemesis or Black,tarry stools Genitourinary-Female: No Frequent nighttime urination/ nocturia Neuro Neurology: No dizziness or weakness Endo Endocrine: No fatigue Exam Const General: cooperative, healthy appearing, comfortable and no acute distress Nutritional Appearance: average body habitus and well nourished Orientation: alert, awake and oriented x3 HENMT Head: normal to inspection Ears: hearing grossly normal bilaterally Nose: external nose normal Face and sinus: face symmetric Mouth: moist mucous membranes Eyes General: appearance normal, both eyes and all related structures Eyelids: eyelids normal EOM: EOM intact bilaterally Neck Neck: normal visual inspection Carotids: normal carotid upstroke Chest Chest palpation & inspection: normal inspection of the chest Resp Effort & Inspection: normal respiratory effort, symmetric chest movement and no cough Auscultation: Bilateral: Clear to Auscultation Cardio Rate: regular rate Rhythm: regular rhythm Heart Sounds: S1 normal, S2 normal, no gallops, no murmurs and no rubs GI Inspection: normal to inspection Skin General: no rashes or lesions noted Neuro General: patient alert, patient awake, patient oriented x3 and CN's II-XI intactbilaterally Coding Level of Care Code Off vis,new,level 3 Diagnoses Hyperlipidemia E78.5 Tremors of nervous system R25.1 Depression F32.A Anxiety F41.9 Assessment and Plan Assessment and Plan (1) Hyperlipidemia: Status: Acute Plan: On account of this, she is on atorvastatin. Will [facility] a [facility]term [facility] A referral for internal medicine team placed. (2) Tremors of nervous system: Status: Acute Plan: On account of this, she is on propranolol. Will send short-term prescription. (3) Depression: Status: Acute Plan: On account of this, she is on Lexapro. Will send short course supply until she establish with primary care provider. (4) Anxiety: Status: Acute Plan: Will send a short-term supply of her Ativan to assist. Orders: Referrals Family Practice E78.5 - Hyperlipidemia, unspecified, F32.A - Depression, unspecified, F41.9 - Anxiety disorder, unspecified, G35 - Multiple sclerosis, R25.1 - Tremor, unspecified, Z82.49 - Family history of ischemic heart disease and other diseases of the circulatory system Medications: New atorvastatin (Lipitor) 20 mg PO QDAY 30 tabs 2RF escitalopram oxalate (Lexapro) 20 mg PO QDAY 30 tabs 2RF propranolol 20 mg PO BID 60 tabs 2RF lorazepam 5 mg (2.5 x 2 mg) PO TID PRN 21 tabs 0RF anxiety Plan Details Additional Comments: Thank you for allowing us to participate in the patients plan of care, if you have any questions please do not hesitate to call. Plan was reviewed with patient/family member along with red flag symptoms. Understanding was acknowledged. Questions were answered to apparent satisfaction. This note was generated using a voice recognition system and there may be incorrect words, spellingor punctuation that were not noted when reviewing the office note prior to saving. Portions of this documentation were copied and pasted from previous office visitnotes to provide a cohesive continuity of the history. The note has been reviewed, edited, and updated, as necessary. 02/12/25 1117 P HAVEN> Date _ Ced Shelby Signature: Date (if applicable) CC: ~ [facility]07-20-2025 Progress note Author Ced Castro [facility] Note Date/Time February 12, 2025 11:1 7am [facility] [address], [address] [place] [address] OFFICE VISIT Date of Service: 02/12/25 MR#: [id number] Acct: [id number] Name: SULEMA HERNANDEZ Rep #: [id number] : 1985 Provider: HAVEN Castro Age/Sex: 39/F Location: [facility] Status: Signed Intake Vital Signs 02/12/25 10:44 Height 5 ft 2 in Weight: 208 lb BMI 38.0 BP 114/70 Blood Pressure Location Lt brachial Position Sitting Respiration 16 Pulse 85 Pulse Source Monitor Pulse Oximetry (%) 99 Oxygen Delivery Method room air Intake Visit Reasons: MED DISCUSSION/SELF PAY Allergies gabapentin Allergy (Unknown, Verified 02/12/25 10:14) unknown paroxetine (From Paxil) Allergy (Unknown, Verified 02/12/25 10:14) unknown Medications ?Medication ?Instructions ?Recorded ?Confirmed ?Type atorvastatin 20 mg tablet (Lipitor) 20 mg PO QDAY #30 tabs 02/12/25 02/12/25 Rx escitalopram oxalate 20 mg tablet 20 mg PO QDAY #30 ta bs 02/12/25 02/12/25 Rx (Lexapro) lorazepam 2 mg tablet 5 mg (2.5 x 2 mg) PO TID PRN 02/12/25 02/12/25 Rx anxiety #21 tabs naproxen sodium 220 mg capsule 220 mg PO BID PRN 02/1202/12/25 History (Aleve) norgestimate 0.18 mg/0.215mg/0.25 1 tab PO QDAY 02/12/25 History mg-ethinyl estradiol 0.025 mg tablet propranolol 20 mg tablet 20 mg PO BID #60 tabs 02/12/25 Rx PFSH Medical History (Updated 02/12/25 @ 11:08 by Ced Castro 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 She recently relocated from [place] and has not establish care with a local primary care provider. She has run out of medication and is concerned that her anxiety is worsening. ROS Const Constitutional: No body ache, chills, fatigue, fever(s) or weakness ENT ENT: No nosebleed/epistaxis Resp Respiratory: No cough, change in phlegm color, chest congestion, excessive phlegm production, hemoptysis or shortness of breath Cardio Cardiology: No chest pain at rest, chest pain with exertion or lightheadedness Gastro GI: No Vomiting blood/hematemesis or Black,tarry stools Genitourinary-Female: No Frequent nighttime urination/ nocturia Neuro Neurology: No dizziness or weakness Endo Endocrine: No fatigue Exam Const General: cooperative, healthy appearing, comfortable and no acute distress Nutritional Appearance: average body habitus and well nourished Orientation: alert, awake and oriented x3 HENMT Head: normal to inspection Ears: hearing grossly normal bilaterally Nose: external nose normal Face and sinus: face symmetric Mouth: moist mucous membranes Eyes General: appearance normal, both eyes and all related structures Eyelids: eyelids normal EOM: EOM intact bilaterally Neck Neck: normal visual inspection Carotids: normal carotid upstroke Chest Chest palpation & inspection: normal inspection of the chest Resp Effort & Inspection: normal respiratory effort, symmetric chest movement and no cough Auscultation: Bilateral: Clear to Auscultation Cardio Rate: regular rate Rhythm: regular rhythm Heart Sounds: S1 normal, S2 normal, no gallops, no murmurs and no rubs GI Inspection: normal to inspection Skin General: no rashes or lesions noted Neuro General: patient alert, patient awake, patient oriented x3 and CN's II-XI intactbilaterally Coding Level of Care Code Off vis,new,level 3 Diagnoses Hyperlipidemia E78.5 Tremors of nervous system R25.1 Depression F32.A Anxiety F41.9 Assessment and Plan Assessment and Plan (1) Hyperlipidemia: Status: Acute Plan: On account of this, she is on atorvastatin. Will send a short-term supply untilshe established with primary care provider. A referral for internal medicine team placed. (2) Tremors of nervous system: Status: Acute Plan: On account of this, she is on propranolol. Will send short-term prescription. (3) Depression: Status: Acute Plan: On account of this, she is on Lexapro. Will send short course supply until she establish with primary care provider. (4) Anxiety: Status: Acute Plan: Will send a short-term supply of her Ativan to assist. Orders: Referrals Family Practice E78.5 - Hyperlipidemia, unspecified, F32.A - Depression, unspecified, F41.9 - Anxiety disorder, unspecified, G35 - Multiple sclerosis, R25.1 - Tremor, unspecified, Z82.49 - Family history of ischemic heart disease and other diseases of the circulatory system Medications: New atorvastatin (Lipitor) 20 mg PO QDAY 30 tabs 2RF escitalopram oxalate (Lexapro) 20 mg PO QDAY 30 tabs 2RF propranolol 20 mg PO BID 60 tabs 2RF lorazepam 5 mg (2.5 x 2 mg) PO TID PRN 21 tabs 0RF anxiety Plan Details Additional Comments: Thank you for allowing us to participate in the patients plan of care, if you have any questions please do not hesitate to call. Plan was reviewed with patient/family member along with red flag symptoms. Understanding was acknowledged. Questions were answered to apparent satisfaction. This note was generated using a voice recognition system and there may be incorrect words, spelling or punctuation that were not noted when reviewing the office note prior to saving. Portions of this documentation were copied and pasted from previous office visitnotes to provide a cohesive continuity of the history. The note has been reviewed, edited, and updated, as necessary. 02/12/25 2062 <Electronically signed by Ced OROURKE> Date _ Ced OROURKE Cosigner Signature: Date (if applicable) CC: ~ [place] [facility] Work Phone: 1(395) 251-796006-02-2025 Note* Exam Date Time Procedure Performing Provider Status 12/26/24 10:20 AM MRI Knee w/o Contrast Right CRUZ, SHELBIE AMARO MD; Auth (Verified) [id number] ORIGINAL EXAMINATION: MRI OF THE RIGHT KNEE WITHOUT CONTRAST, 12/26/2024 10:23 am TECHNIQUE: Multiplanar multisequence MRI of the right knee was performed without the administration of intravenous contrast. COMPARISON: None. HISTORY: ORDERING SYSTEM PROVIDED HISTORY: Reason for Exam: Sprain of unspecified site of right knee, initial encounter Anterolateral knee pain FINDINGS: Bone marrow edema involving the posterolateral tibial plateau surrounding subchondral linear low signal line which may reflect subchondral trabecular micro fracturing. Bone marrow edema is also seen in the anteromedial tibial plateau. The anterior cruciate ligament is intact. The posterior cruciate ligament is intact. The medial collateral ligament is intact. The iliotibial band is intact. The fibular collateral ligament, popliteus tendon, and biceps femoris tendon are intact. The medial meniscus is intact. There are no displaced medial meniscal fragments. The lateral meniscus is intact. There are no displaced lateral meniscal fragments. Articular cartilage in the medial and lateral compartments is intact. There is some areas of reparative fibrocartilage formation in the patellofemoral compartment involving the patellar apex where there is focal deep chondral fissuring with questionable chondral flap (series 10, image 23). There also some areas of deep chondral fibrillation involving the medial patellar facet where there is reactive subchondral cystic change. The extensor mechanisms appear intact. Mild edema in the superolateral aspect of Hoffa's fat pad. There is no joint effusion, synovitis, displaced intra-articular body or erosion. There is no Berrios's cyst. There is no muscle atrophy, tear or denervation edema. Neurovascular bundles appear intact. IMPRESSION: 1. Bone marrow edema/contusion involving the posterolateral tibial plateau with subchondral linear low signal which may reflect subchondral trabecular micro fracturing. Additional marrow edema/contusion present in the anteromedial tibial plateau. 2. Deep chondral fissuring with reparative fibrocartilage formation involving the patellar apex with questionable chondral flap. Additional areas of deep chondral fibrillation involving the medial patellar facet with reactive subchondral cystic change. 3. Mild edema in the superolateral aspect of Hoffa's fat pad, this may be related to lateral patellar friction syndrome. 4. Additional incidental findings as above Interpreted by: Maude Cruz Preliminary Report By: Maude Cruz Electronically signed By Maude Cruz Dictated Date: 12/26/2024 10:44:36 AM Prelim Date: 12/26/2024 10:55:00 AM Sign Date: 12/26/2024 10:55:00 AM Ordering Provider: ANDREA KEITH [facility]05-13-2025 Telephone encounter Note* Telephone Encounter - Stefania Keith MA - 12/06/2024 8:34 AM EDT Patient calling and states she took the control for a week and her hands started to get a bumpy rash with blisters on her hands. The nurse at her employer told her she was having the reaction. Patient stopped the medication and the rash went away. Patient is asking for a different control? [facility]05-13-2025 Miscellaneous Notes* Telephone Encounter - Stefania Keith MA - 12/06/2024 8:34 AM EDT Patient calling and states she took the control for a week and her hands started to get a bumpy rash with blisters on her hands. The nurse at her employer told her she was having the reaction. Patient stopped the medication and the rash went away. Patient is asking for a different control? [facility] Instructions* Patient Instructions* Va Gardner MD - 11/07/2024 11:54 AM EDT Please start the oral contraceptive pills for PCOS Endocrine weight management referral given to discuss about weight loss documented in this encounterMer[facility]04-14-2025 NoteHNO ID: [id number] Author: VA GARDNER MD Service: ? Author Type: Physician Type: Progress Notes Filed: 11/07/2024 23:28 Note Text: Endocrinology and Metabolism [place] Follow up note HPI Sulema Hernandez is a 39 year old female presenting for follow up of irregular cycles She moved from [place] to [place] in February 2024 and has established with us. Initial/last visit 10/10/24 History as per prior documentation, Hirsutism started: last year or more, upper lip, lower jaw, and chin, chest - thick black hair Patient uses mechanical hair removal (i.e. tweezers/waxing/shaving): electric razor, every other day on face, on chest with tweezers once weekly Hair loss significant History of deepening of voice: No History of change in genitalia: No LMP: 05/29/2024 Menstrual flow: 5 to 6 days Menarche: 14 years old, always irregular and heavy since Periods got worse after having kids, more irregular. For the last few years, she was having very heavy bleeding she had to change pads every hr, or change clothes Last 2 years , no bleeding or spotting, tried progesterone for 60 days or so, every day Had one period last month and this month - heavy, 5 to 6 days Number of Pregnancies: 2, breast feeding done for second child- first at 19, second at 19, no miscarriages Planning a : no Currently taking oral contraception: no Hot flashes - significant Tremors +, she was on propranolol, this medication helped but stopped when moved to [place] after running out Rashes on arms - purple red, worsens in sun. She could not tell about facial rash, as she does not look in the mirror after going out in Sun She is on no medications or supplements at this time, except melatonin She reports my temper is quicker She has symptoms with control pills like mastalgia She does not have any changes in shoe size She c/o joint pains She was advised to take control pills for POCS by Endo, but she does not prefer this. Progesterone only tablets used, but she could not tolerate this either She was on aldactone for 1 year did not help- she could not specify the dose, increased dose 2 times, but not helped with rage or hirsutism Metformin used, makes her sick- she would have to lie down to few hours, sleepy for few hours, diarrhea and Vomiting when she woke up, dizziness She was followed by [facility] of [place], being treated for PCOS. She had CT adrenal, MRI pituitary done. No results available for us now. 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 PAST SURGICAL HISTORY: No past surgical history on file. FAMILY HISTORY: No family history on file. SOCIAL HISTORY: Social History Tobacco Use Smoking status: Former Types: Cigarettes Passive exposure: Past Smokeless tobacco: Never Vaping Use Vaping status: current everyday user Substances: Nicotine, Flavoring Devices: Disposable Substance Use Topics Alcohol use: Not Currently Drug use: Not Currently MEDICATIONS: Current Outpatient Medications on File Prior to Visit Medication Sig rjnbknoud-evkbh-xbcqa-jose antonio-lav 0.5-25-12.5 mg chew Take 2 Each by mouth once daily. No current facility-administered medications on file prior to visit. ALLERGIES: ALLERGIES Allergen Reactions Metformin Diarrhea, Dystonia, Vomiting Paxil [Paroxetine] Mental Status Change Zyrtec [Cetirizine] Anaphylaxis ROS 10 point ROS was reviewed and negative unless indicated in the HPI PHYSICAL EXAM BP 136/76 (BP Site: Right Arm, BP Position: Sitting, BP Cuff Size: Large Adult) Pulse 89 Temp 37.1 ?C (98.7 ?F) (Temporal Artery) Wt 93.7 kg (206 lb 9.6 oz) LMP 10/04/2024 (Approximate) SpO2 99% BMI 37.79 kg/m? General Appearance: Well appearing, alert, in no acute distress, well-hydrated, obese body habitus Skin: Skin color, texture, turgor normal, no suspicious rashes or lesions. Eyes: Anicteric sclera. Extraocular movements are intact. No lid lag or proptosis Neck: Supple, no adenopathy; thyroid symmetric, normal size, no bruits. Lungs:: unlabored breathing on room air Heart: Regular rate and rhythm, S1 and S2 normal Abdomen: Normal abdominal exam, Abdomen soft, non-tender. No wide striae, has slightly dark thin striae which she reported was from Extremities: No deformities, edema, skin discoloration, clubbing or cyanosis. Has coarse tremors in b/l outstretched hands M (more content not included)...[facility]04-14-2025 History of Present illness Narrative* Va Gardner MD - 11/07/2024 11:41 AM EDT Endocrinology and Metabolism [place] Follow up note HPI Sulema Hernandez is a 39 year old female presenting for follow up of irregular cycles She moved from [place] to [place] in February 2024 and has established with us. Initial/last visit 10/10/24 History as per prior documentation, Hirsutism started: last year or more, upper lip, lower jaw, and chin, chest - thick black hair Patient uses mechanical hair removal (i.e. tweezers/waxing/shaving): electric razor, every other day on face, on chest with tweezers once weekly Hair loss significant History of deepening of voice: No History of change in genitalia: No LMP: 05/29/2024 Menstrual flow: 5 to 6 days Menarche: 14 years old, always irregular and heavy since Periods got worse after having kids, more irregular. For the last few years, she was having very heavy bleeding she had to change pads every hr, or change clothes Last 2 years , no bleeding or spotting, tried progesterone for 60 days or so, every day Had one period last month and this month - heavy, 5 to 6 days Number of Pregnancies: 2, breast feeding done for second child- first at 19, second at 19, no miscarriages Planning a : no Currently taking oral contraception: no Hot flashes - significant Tremors +, she was on propranolol, this medication helped but stopped when moved to [place] after running out Rashes on arms - purple red, worsens in sun. She could not tell about facial rash, as she does not look in the mirror after going out in Sun She is on no medications or supplements at this time, except melatonin She reports my temper is quicker She has symptoms with control pills like mastalgia She does not have any changes in shoe size She c/o joint pains She was advised to take control pills for POCS by Endo, but she does not prefer this. Progesterone only tablets used, but she could not tolerate this either She was on aldactone for 1 year did not help- she could not specify the dose, increased dose 2 times, but not helped with rage or hirsutism Metformin used, makes her sick- she would have to lie down to few hours, sleepy for few hours, diarrhea and Vomiting when she woke up, dizziness She was followed by [facility] of [place], being treated for PCOS. She had CT adrenal, MRI pituitary done. No results available for us now. Will request from previousEndo office in [place] Recent Hba1c reported 5.7% She reports she was started on LT4 by PCP, and was objected by [employer] T[employer] Operator and hence she is offnow Patient is okay to do labs again to establish the diagnosis although we discussed requesting from her previous endo office Interval history: 11/07/24 No new symptoms LMP in 09/2024 Metformin made her very sick when initially used few years ago for PCOS, and would like to avoid that PAST MEDICAL HISTORY: No past medical history on file. PAST SURGICAL HISTORY: No past surgical history on file. FAMILY HISTORY: No family history on file. SOCIAL HISTORY: Social History Tobacco Use Smoking status: Former Types: Cigarettes Passive exposure: Past Smokeless tobacco: Never Vaping Use Vaping status: current everyday user Substances: Nicotine, Flavoring Devices: Disposable Substance Use Topics Alcohol use: Not Currently Drug use: Not Currently MEDICATIONS: Current Outpatient Medications on File Prior to Visit Medication Sig vrydfybmm-mzwtu-tokqc-jose antonio-lav 0.5-25-12.5 mg chew Take 2 Each by mouth once daily. No current facility-administered medications on file prior to visit. ALLERGIES: ALLERGIES Allergen Reactions Metformin Diarrhea, Dystonia, Vomiting Paxil [Paroxetine] Mental Status Change Zyrtec [Cetirizine] Anaphylaxis ROS 10 point ROS was reviewed and negative unless indicated in the HPI PHYSICAL EXAM BP 136/76 (BP Site: Right Arm, BP Position: Sitting, BP Cuff Size: Large Adult) Pulse 89 Temp 37.1 C (98.7 F) (Temporal Artery) Wt 93.7 kg (206 lb 9.6 oz) LMP 10/04/2024 (Approximate) SpO2 99% BMI 37.79 kg/m General Appearance: Well appearing, alert, in no acute distress, well-hydrated, obese body habitus Skin: Skin color, texture, turgor normal, no suspicious rashes or lesions. Eyes: Anicteric sclera. Extraocular movements are intact. No lid lag or proptosis Neck: Supple, no adenopathy; thyroid symmetric, normal size, no bruits. Lungs:: unlabored breathing on room air Heart: Regular rate and rhythm, S1 and S2 normal Abdomen: Normal abdominal exam, Abdomen soft, non-tender. No wide striae, has slightly dark thin striae which she reported was from Extremities: No deformities, edema, skin discoloration, clubbing or cyanosis. Has coarse tremors inb/l outstretched hands Musculoskeletal: No joint swelling, deformity, or tenderness. Peripheral Pulses: Normal. Neurologic: Gait normal. Reflexes decreased and symmetric. PREVIOUS DATA Diagnostic tests/Imaging reviewed for today's visit: None available from before- request sent, did not receive any labs Latest Ref Rng 10/19/2024 9.08 AM Sex Hormone Bind GLB 25 - 122 nmol/L 23 (L) Testosterone Total 9 - 55 ng/dL 75 (H) Testosterone Free 1.3 - 9.2 pg/mL 15.6 (H) Testo Bioavailable 4.1 - 25.5 ng/dL 40.8 (H) Hydroxyprogesterone <=206.00 ng/dL 74.73 TSH 0.270 - 4.200 mIU/L 1.520 Prolactin 4.4 - 33.8 ng/mL 10.8 DHEA-S 60.9 - 337.0 ug/dL 176.5 Free T4 0.9 - 1.7 ng/dL 1.0 Estradiol 17B pg/mL 41 FSH See comment mIU/mL 6.3 LH See comment mIU/mL 8.1 Latest Ref Rng 10/19/2024 Metanephrine, 24 hr urine 52 - 341 ug/24 hr 86 Normetanephrine, 24 hr urine 88 - 444 ug/24 hr 328 Tot Metanephrine, 24 hr urine 140 - 785 ug/24 hr 414 Catecholamines Ordered but missed Urine Volume 24 hour mL 1,200 Urine Volume 24 hour mL 1,200 Urine Volume 24 hour mL 1,200 Period hr 24 Period hr 24 Period hr 24 Creatinine 24 hr Ur 0.800 - 1.800 g/24 hr 1.546 5 HIAA, 24 Hr Urine <7.7 mg/24hrs 4.0 Insulin-like Growth Factor I 79 - 276 ng/mL 165 IGF-1 z-score -2.0 - 2.0 -0.3 Insulin, Total 2.6 - 24.9 uU/mL 39.8 (H) Legend: (L) Low (H) High ASSESSMENT AND PLAN NIH Criteria oligo/anovulation: yes evidence of hyperandrogenism: hirsutism other causes excluded: no Based on labs, all other causes of irregular menses ruled out, reviewed this is PCOS. Labs for hot flashes are all normal from endocrine standpoint No concerns for Kiet's at this time clinically, no cortisol testing done but DHEAs is normal Reviewed pathophysiology, Treatment options including pharmacological and non pharmacological on last visit She did not prefer contraceptive pills on last appt when discussed treatment of PCOS, could not tolerate metformin, aldactone was not helpful with hirsutism (although she could not remember the dose,it appears that it was not the lowest dose). The only therapy would be weight loss in that case, with or without medications Discussed diet and exercise for weight loss. Endocrine weight management referral placed after discussing. Until she could lose weight and insulin resistance and T levels normalize, discussed using OCPs daily with monthly cycles vs provera every 3 months (she is having less than 5 cycles a year at this point) She is agreeable to start OCPs for the above indication, script sent as well 1. Irregular periods/menstrual cycles - ENDOCRINE MEDICAL WEIGHT MANAGEMENT; Future 2. PCOS (polycystic ovarian syndrome) (Primary) - ENDOCRINE MEDICAL WEIGHT MANAGEMENT; Future - norgestimate 0.25 mg-ethinyl estradiol 35 mcg 0.25-35 mg-mcg per tablet; Take 1 tablet by mouth once daily. Dispense: 84 tablet; Refill: 0 All questions welcomed and answered to satisfaction The assessment and benefits/risks of the plan were discussed with the patient who expressed understanding and was agreeable to that which is noted above. The patient should follow-up in 3 months with labs Va Gardner MD Endocrinology Associate Staff [facility] Endocrinology and Metabolism [place] [phone] Medical Decision Making: Problems: Moderate: 2+ stable chronic illnesses Data: Unique test result(s) reviewed: 3+ Risk: Moderate: Drug management Medical Decision Making Level: 4 - Moderate documented in this encounterMercy [facility]03-17-2025 Instructions* Patient Instructions* Va Gardner MD - 10/10/2024 1:59 PM EDT Please do labs on fasting at 8 am, avoid taking any supplements for atleast 3 to 5 days before labsare drawn COLLECTING URINE FOR 24 HOURS: 1. Best done the morning of one day to the morning of the next day ( two consecutive mornings). 2. Imperative that you arise from bed at the exact same time on Day 1 and Day 2. 3. When you arise on Day 1 you will have to urinate. This goes into the toilet and is flushed away. 4. Every time from then on for the remainder of Day 1 and at night Day 1 to Day 2, every drop of urine that you pass must go into the container that we will provide for you. 5. When you arise on Day 2 you will also have to urinate. This goes into the container and completes the urine collection. 6. The container should be kept refrigerated until it is turned in to the laboratory. 7. Bring the completed urine collection container to the laboratory as soon as possible. documented in this encounterMercy [facility]03-17-2025 NoteHNO ID: [id number] Author: VA GARDNER MD Service: ? Author Type: Physician Type: Progress Notes Filed: 10/10/2024 18:13 Note Text: Endocrinology and Metabolism [place] Initial Clinic Visit Note HPI Sulema Hernandez is a 39 year old female presenting as a new patient to me for evaluation of ovarian hyperandrogenism. She moved from [place] to [place] in February 2024 Hirsutism started: last year or more, upper lip, lower jaw, and chin, chest - thick black hair Patient uses mechanical hair removal (i.e. tweezers/waxing/shaving): electric razor, every other day on face, on chest with tweezers once weekly Hair loss significant History of deepening of voice: No History of change in genitalia: No LMP: 05/29/2025 Menstrual flow: 5 to 6 days Menarche: 14 years old, always irregular and heavy since Periods got worse after having kids, more irregular. For the last few years, she was having very heavy bleeding she had to change pads every hr, or change clothes Last 2 years , no bleeding or spotting, tried progesterone for 60 days or so, every day Had one period last month and this month - heavy, 5 to 6 days Number of Pregnancies: 2, breast feeding done for second child- first at 19, second at 19, no miscarriages Planning a : no Currently taking oral contraception: no Hot flashes - significant Tremors +, she was on propranolol, this medication helped but stopped when moved to [place] after running out Rashes on arms - purple red, worsens in sun. She could not tell about facial rash, as she does not look in the mirror after going out in Sun She is on no medications or supplements at this time, except melatonin She reports my temper is quicker She has symptoms with control pills like mastalgia She does not have any changes in shoe size She c/o joint pains She was advised to take control pills for POCS by Endo, but she does not prefer this. Progesterone only tablets used, but she could not tolerate this either She was on aldactone for 1 year did not help- she could not specify the dose, increased dose 2 times, but not helped with rage or hirsutism Metformin used, makes her sick- she would have to lie down to few hours, sleepy for few hours, diarrhea and Vomiting when she woke up, dizziness She was followed by [facility] of [place], being treated for PCOS. She had CT adrenal, MRI pituitary done. No results available for us now. 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 PAST SURGICAL HISTORY: No past surgical history on file. FAMILY HISTORY: No family history on file. SOCIAL HISTORY: MEDICATIONS: Current Outpatient Medications on File Prior to Visit Medication Sig fdyqgnczv-kiyql-muyis-jose antonio-lav 0.5-25-12.5 mg chew Take 2 Each by mouth once daily. No current facility-administered medications on file prior to visit. ALLERGIES: ALLERGIES Allergen Reactions Metformin Diarrhea, Dystonia, Vomiting Paxil [Paroxetine] Mental Status Change Zyrtec [Cetirizine] Anaphylaxis ROS 10 point ROS was reviewed and negative unless indicated in the HPI PHYSICAL EXAM BP 144/90 (BP Site: Right Arm, BP Position: Sitting, BP Cuff Size: Regular Adult) Pulse 77 Temp 37.1 ?C (98.7 ?F) (Temporal Artery) Ht 157.5 cm (5' 2) Wt 93.5 kg (206 lb 3.2 oz) SpO2 96% BMI 37.71 kg/m? General Appearance: Well appearing, alert, in no acute distress, well-hydrated, well nourished, obese body habitus Skin: Skin color, texture, turgor normal, no suspicious rashes or lesions. Eyes: Anicteric sclera. Extraocular movements are intact. Neck: Supple, no adenopathy; thyroid symmetric, normal size, no bruits. Lungs:: unlabored breathing on room air Heart: Regular rate and rhythm Abdomen: Normal abdominal exam, Abdomen soft, non-tender. No wide striae, has slightly dark thin striae which she reported was from Extremities: No deformities, edema, skin discoloration, clubbing or cyanosis. Has coarse tremors in b/l outstretched hands Musculoskeletal: No joint swelling, deformity, or tenderness. Peripheral Pulses: Normal. Neurologic: Gait normal. Reflexes decreased and symmetric. PREVIOUS DATA Diagnostic tests/Imaging reviewed for today's visit: None available- request sent ASSESSMENT AND PLAN NIH Criteria oligo/anovulation: yes evidence of hyperandrogenism: hirsutism other causes excluded: no From work up previously done and medications given, assuming she was diagnosed with PCOS, but given she also had CT adrenal done at some point, and after patient's consent, we wi (more content not included)...[facility]03-17-2025 History of Present illness Narrative* Va Gardner MD - 10/10/2024 1:03 PM EDT Endocrinology and Metabolism [place] Initial Clinic Visit Note HPI Sulema Hernandez is a 39 year old female presenting as a new patient to me for evaluation of ovarian hyperandrogenism. She moved from [place] to [place] in February 2024 Hirsutism started: last year or more, upper lip, lower jaw, and chin, chest - thick black hair Patient uses mechanical hair removal (i.e. tweezers/waxing/shaving): electric razor, every other day on face, on chest with tweezers once weekly Hair loss significant History of deepening of voice: No History of change in genitalia: No LMP: 05/29/2025 Menstrual flow: 5 to 6 days Menarche: 14 years old, always irregular and heavy since Periods got worse after having kids, more irregular. For the last few years, she was having very heavy bleeding she had to change pads every hr, or change clothes Last 2 years , no bleeding or spotting, tried progesterone for 60 days or so, every day Had one period last month and this month - heavy, 5 to 6 days Number of Pregnancies: 2, breast feeding done for second child- first at 19, second at 19, no miscarriages Planning a : no Currently taking oral contraception: no Hot flashes - significant Tremors +, she was on propranolol, this medication helped but stopped when moved to [place] after running out Rashes on arms - purple red, worsens in sun. She could not tell about facial rash, as she does not look in the mirror after going out in Sun She is on no medications or supplements at this time, except melatonin She reports my temper is quicker She has symptoms with control pills like mastalgia She does not have any changes in shoe size She c/o joint pains She was advised to take control pills for POCS by Endo, but she does not prefer this. Progesterone only tablets used, but she could not tolerate this either She was on aldactone for 1 year did not help- she could not specify the dose, increased dose 2 times, but not helped with rage or hirsutism Metformin used, makes her sick- she would have to lie down to few hours, sleepy for few hours, diarrhea and Vomiting when she woke up, dizziness She was followed by [facility] of [place], being treated for PCOS. She had CT adrenal, MRI pituitary done. No results available for us now. 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 PAST SURGICAL HISTORY: No past surgical history on file. FAMILY HISTORY: No family history on file. SOCIAL HISTORY: MEDICATIONS: Current Outpatient Medications on File Prior to Visit Medication Sig ibtdlqkpo-hltaq-zxgta-jose antonio-lav 0.5-25-12.5 mg chew Take 2 Each by mouth once daily. No current facility-administered medications on file prior to visit. ALLERGIES: ALLERGIES Allergen Reactions Metformin Diarrhea, Dystonia, Vomiting Paxil [Paroxetine] Mental Status Change Zyrtec [Cetirizine] Anaphylaxis ROS 10 point ROS was reviewed and negative unless indicated in the HPI PHYSICAL EXAM BP 144/90 (BP Site: Right Arm, BP Position: Sitting, BP Cuff Size: Regular Adult) Pulse 77 Temp37.1 C (98.7 F) (Temporal Artery) Ht 157.5 cm (5' 2) Wt 93.5 kg (206 lb 3.2 oz) SpO2 96% BMI 37.71 kg/m General Appearance: Well appearing, alert, in no acute distress, well-hydrated, well nourished, obese body habitus Skin: Skin color, texture, turgor normal, no suspicious rashes or lesions. Eyes: Anicteric sclera. Extraocular movements are intact. Neck: Supple, no adenopathy; thyroid symmetric, normal size, no bruits. Lungs:: unlabored breathing on room air Heart: Regular rate and rhythm Abdomen: Normal abdominal exam, Abdomen soft, non-tender. No wide striae, has slightly dark thin striae which she reported was from Extremities: No deformities, edema, skin discoloration, clubbing or cyanosis. Has coarse tremors inb/l outstretched hands Musculoskeletal: No joint swelling, deformity, or tenderness. Peripheral Pulses: Normal. Neurologic: Gait normal. Reflexes decreased and symmetric. PREVIOUS DATA Diagnostic tests/Imaging reviewed for today's visit: None available- request sent ASSESSMENT AND PLAN NIH Criteria oligo/anovulation: yes evidence of hyperandrogenism: hirsutism other causes excluded: no From work up previously done and medications given, assuming she was diagnosed with PCOS, but arnulfo also had CT adrenal done at some point, and after patient's consent, we will be doing lab testsfor evaluation of irregular cycles Reviewed that Plasma labs to be done on fasting at 8 am Also discussed checking for hot flashes and tremors with 24hr urine collection - instructions given No concerns for Kiet's at this time I will consider any additional testing based on preliminary labs - Advised on nursing home risks of PCOS including increased risk for endometrial cancer, diabetes, CAD, hyperlipidemia Reviewed pathophysiology, Treatment options including pharmacological ad non pharmacological She does not prefer contraceptive pills, could not tolerate metformin, aldactone was not helpful with hirsutism (although she could not remember the dose, it appears that it was not the lowest dose).The only therapy would be weight loss in that case, with or without medications 1. Irregular periods/menstrual cycles (Primary) - TESTOSTERONE, BIOAVAILABLE AND TOTAL BY MS (ADULT FEMALES, CHILDREN, OR INDIVIDUALS ON TESTOSTERONE-SUPPRESSING THERAPY); Future - HYDROXYPROGESTERONE-17; Future - THYROID STIMULATING HORMONE; Future - PROLACTIN; Future - DHEA-S BLD; Future - T4 FREE/FREE THYROXINE; Future - ESTRADIOL-17B BLD; Future - FOLLICLE STIMULATING HORMONE; Future - LUTEINIZING HORMONE; Future - INSULIN, TOTAL, SERUM; Future 2. Hot flashes - INSULIN LIK GR FAC I; Future - METANEPHRINES 24H UR - CREATININE, 24 HOUR URINE - CATECHOL, FRACT, 24-HR UR W/O CREATININE; Future - HIAA-5 QUANT 24H UR All questions welcomed and answered to satisfaction The assessment and benefits/risks of the plan were discussed with the patient who expressed understanding and was agreeable to that which is noted above. I spent a total of 60 minutes on the date of the service which included preparing to see the patient, [id number] patient care, completing clinical documentation, obtaining and/or reviewing separately obtained history, performing a medically appropriate examination, counseling and educating the pat ient/family/caregiver, ordering medications, tests, or procedures, independently interpreting results (not separately reported), and communicating results to the patient/family/caregiver. The patient should follow-up in 4 weeks with clara Gardner MD Endocrinology Associate Staff [facility] Endocrinology and Metabolism [place] [phone] Medical Decision Making: Medical Decision Making Level: 1 - N/A [facility] note No data available for this section [facility] Evaluation note* Diagnosis Irregular periods/menstrual cycles- Primary Irregular menstrual cycle Hot flashes Symptomatic menopausal or female climacteric states [facility] Diagnosis PCOS (polycystic ovarian syndrome)- Primary Polycystic ovaries Irregular periods/menstrual cycles Irregular menstrual cycle [facility] Diagnosis PCOS (polycystic ovarian syndrome)- Primary Polycystic ovaries [facility] Diagnosis Onset Date Resolution Status Admit Date Anxiety acute February 12 10:02am Depression acute February 12 10:02am Hyperlipidemia acute February 12, 2025 10:02am Tremors of nervous system acute February 12, 2025 10:02am [facility] Work Phone: Evaluation note* Diagnosis Left elbow pain- Primary Pain in joint, upper arm [facility] No data available for this section [facility] Hospital Discharge instructionsAmbulatory Orders* Family Practice Location: None Selected [facility] Work Phone: Progress note No data available for this section [facility] Reason for visit Narrative* Diagnostic Procedure Only (Urgent) - Closed Specialty Diagnoses / Procedures Referred By Contac t Referred To Contact XR IMAGING Diagnoses Left elbow pain Procedures XR ELBOW SPECIAL VIEWS AP/LAT/OTHER LEFT RADEX ELBOW COMPLETE MINIMUM 3 [place] [address] [place] [address] Phone: tel: fax: [place] [phone] Referral ID Status Reason Start Date Expiration Date V isits Requested Visits Authorized [id number] Closed Auto-Generate d Referral 03/19/2025 04/18/2026 1 1 [facility] Summary Purpose Family History Relationship Condition Age at Onset Recorded Date/T elliott mother Hypertension Unknown Polycystic ovary syndrome Unknown father Mental disorder Unknown Cardiac disease Unknown Anxiety Unknown Depression Unknown No Family History Records Found Advance Directives No Advanced Directives Records FoundNo Advanced Directives Records FoundNo Advanced Directives Records Found Chief Complaint and Reason for Visit Chief Complaint Admit Date MED DISCUSSION/SELF PAY February 12, 2025 10:02am Reason for Visit Admit Date Anxiety February 12, 2025 10:0 2am Depression February 12, 2025 10:0 2am Hyperlipidemia February 12, 2025 10:0 2am Tremors of nervous system February 12 10:02am Chief Complaint Admit Date MED DISCUSSION/SELF PAY February 12, 2025 10:02am 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 MED REFILL-EST IN JulyFebruary 24, 2025 2:52pm Reason for Visit Admit Date Anxiety February 12, 2025 10:0 2am Depression February 12, 2025 10:0 2am Hyperlipidemia February 12, 2025 10:0 2am Tremors of nervous system February 12 10:02am Anxiety February 24, 2025 2:5 2pm Depression February 24, 2025 2:5 2pm Family history of cardiac disorder Augus 2024 2:52pm Hyperlipidemia February 24, 2025 2:5 2pm Melanoma February 24, 2025 2:5 2pm Multiple sclerosis February 24, 2025 2:5 2pm Tremors of nervous system February 24 2:52pm Chief Complaint Admit Date MED DISCUSSION/SELF PAY February 12, 2025 10:02am 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 MED REFILL-EST IN JulyFebruary 24, 2025 2:52pm Asthma/Abnormal finding on lung Septembe 2024 11:16am Reason for Visit Admit Date Anxiety February 12, 2025 10:0 2am Depression February 12, 2025 10:0 2am Hyperlipidemia February 12, 2025 10:0 2am Tremors of nervous system February 12 10:02am Anxiety February 24, 2025 2:5 2pm Depression February 24, 2025 2:5 2pm Encounter to establish care with new pro vider February 24, 2025 2:52pm Hyperlipidemia February 24, 2025 2:5 2pm Multiple sclerosis February 24, 2025 2:5 2pm Tremors of nervous system February 24 2:52pm Asthma April 05, 2025 11:16am Lung nodule April 05, 2025 11:16am Additional Source Comments Source Comments (unrecognize d section and content) In the event this informatio n is protected by the Federal Confidentiality of Alcohol and Drug Abuse Patient Records regulations: The Federal rules restrict any use of the information to criminally investigate or prosecute any alcohol or drug abuse patient.[facility] Hospital[facility] the event this information is protected by the Federal Confidentiality of Alcohol and Drug Abuse Patient Records regulations: The Federal rules restrict any use of the information to criminally investigate or prosecute any alcohol or drug abuse patient.[facility] HospitalIn the event this information is protected by the Federal Confidentiality of Alcohol and Drug Abuse Patient Records regulations: The Federal rules restrict any use of the information to criminally investigate or prosecute any alcohol or drug abuse patient.[facility] HospitalIn the event this information is protected by the Federal Confidentiality of Alcohol and Drug Abuse Patient Records regulations: The Federal rules restrict any use of the information to criminally investigate or prosecute any alcohol or drug abuse patient.[facility] HospitalIn the event this information is protected by the Federal Confidentiality of Alcohol and Drug Abuse Patient Records regulations: The Federal rules restrict any use of the information to criminally investigate or prosecute any alcohol or drug abuse patient.[facility] Reason for Visit (unrecogniz ed section and content) Reason Comments Pituitary Problem Hot flashes,no perio d,rage,hair growth,weight gain,HALabs abnormal,imaging done Specialty Diagnoses / Procedures Referred By Contac t Referred To Contact [facility] DEPARTMENT Diagnoses 100% FAP - all medically necessary Procedures 100% FAP - all medically necessary Self [facility] [place] [address] Referral ID Status Reason Start Date Expiration Date Visits Requested Visits Authorized [id number] Authorized Financial Clearance Required - Self Pay Patient Cleared - Qualified HCAP/FA 10/10/2024 01/08/2025 99 99 Reason Comments Irregular periods/menstrual cycles labs Reason Comments Reaction to control medication Reason Comments left arm pain X 3 days-uncertain w hat she did Patient Care team informatio n (unrecognized section and content) Team Status: Inactive Member Role/Relationship Status Dates Ced Castro 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, 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-C Attending Provider Active S tart: February 12, 2025 End: February 12, 2025 Team Status: Inactive Member Role/Relationship Status Dates HAVEN Hoyos Attending Provider Active Start: February 24, 2025 End: February 24, 2025 Team Status: Inactive Member Role/Relationship Status Dates Dr. Amando Durant , Attending Provider Active S tart: April 05, 2025 End: April 05, 2025 HAVEN Hoyos Referring Provider Active Start: April 05, 2025 End: April 05, 2025 INFORMATION SOURCE (unrecogn ized section and content) DATE CREATED AUTHOR 01/03/2025 [facility] DATE CREATED AUTHOR AUTHOR'S ORGANIZ ATION 03/20/2025 [facility] DATE CREATED AUTHOR AUTHOR'S ORGANIZ ATION 04/13/2025 [facility] Goals (unrecognized section and content) Goals may be documented in a n alternate section FOR RECORDS PERTAINING TO PATIENTS WHO ARE OR HAVE BEEN ENROLLED IN A CHEMICAL DEPENDENCY/SUBSTANCEABUSE PROGRAM, SOME INFORMATION MAY BE OMITTED. This clinical summary was aggregated from multiple sources. Caution should be exercised in using it in the provision of clinical care. This summary normalizes information from multiple sources, and as a consequence, information in this document may materially change the coding, format and clinical context of patient data. In addition, data may be omitted in some cases. CLINICAL DECISIONS SHOULD BE BASED ON THE PRIMARY CLINICAL RECORDS. [facility]. provides no warranty or guarantee of the accuracy or completeness of information in this document.
== END | disposition home or self-care (01) ==
PROVIDERS: PCP Nurse Practitioner Family; Referring Provider Internal Medicine Critical Care Medicine; Visit Provider Internal Medicine Critical Care Medicine
DX: R91.1 Solitary pulmonary nodule (principal)
CPT/HCPCS: 71250

== ENCOUNTER → 2025-04-20 | Outpatient (CLI) | payer OTHER, SELFPAY ==
[2025-04-20 14:12] VITALS: PULSE 75; PULSE 76; PULSE 93; PULSE 94; PULSE 95; O2SAT 95; O2SAT 96; O2SAT 97; O2SAT 98
--- NOTE | 2025-04-21 09:05 | PCM.PSN.6M ---
PSN 6 Minute Walk Test 6 Minute Walk Test 6 Minute Walk Test: 6 Minute Walk Test PSN:6-Minute Walk Test Start: 04/20/25 14:11 Freq: Status: Active Protocol: RESP.6MINW Document 04/20/25 14:12 ROYA (Rec: 04/20/25 14:16 ROYA [id number]) 6 Minute Walk Test Date Performed 04/20/25 Time Performed 14:00 Height 5 ft 2 in Weight: 208 lb Weight in Pounds [address]: Amando Durant Assistive device None used: Pre-test Oxygen Delivery Room Air Method Pulse Ox (%) 98 Pulse Rate (60-100 76 beats/min) Dyspnea Gerry Scale ( 0 0-10) Exertion Gerry Scale 6 (6-20) 1st minute Oxygen Delivery Room Air Method Pulse Ox (%) 97 Pulse Rate (60-100 93 beats/min) 2nd minute Oxygen Delivery Room Air Method Pulse Ox (%) 95 Pulse Rate (60-100 94 beats/min) 3rd minute Oxygen Delivery Room Air Method Pulse Ox (%) 96 Pulse Rate (60-100 94 beats/min) 4th minute Oxygen Delivery Room Air Method Pulse Ox (%) 96 Pulse Rate (60-100 94 beats/min) 5th minute Oxygen Delivery Room Air Method Pulse Ox (%) 97 Pulse Rate (60-100 95 beats/min) 6th minute Oxygen Delivery Room Air Method Pulse Ox (%) 97 Pulse Rate (60-100 95 beats/min) Dyspnea Gerry Scale ( 2 0-10) Exertion Gerry Scale 12 (6-20) Post-test Oxygen Delivery Room Air Method Pulse Ox (%) 98 Pulse Rate (60-100 75 beats/min) Full Laps Walked 20 Partial Lap, Number 16 of Tiles Walked Total Distance 1196 Walked (ft) Interpretation Interpretation: The patient ambulated 1196 feet over the course of 6 minutes beginning on room air without assistive devices. Pretesting oxygen saturation was noted to be 98% on room air. With ambulation, the jorge oxygen saturation was 95%. There was no significant exertional oxygen desaturation. Recommendations Recommendations: There is no indication for the use of supplemental oxygen at this time.
== END | disposition home or self-care (01) ==
PROVIDERS: PCP Nurse Practitioner Family; Referring Provider Internal Medicine Critical Care Medicine; Visit Provider Internal Medicine Critical Care Medicine
DX: R91.1 Solitary pulmonary nodule (principal); J45.909 Unspecified asthma, uncomplicated
CPT/HCPCS: 94618

== ENCOUNTER → 2025-05-17 | Outpatient (CLI) | payer OTHER, SELFPAY | END | disposition home or self-care (01) | LOC: PSN 09:36 | PROVIDERS: PCP Nurse Practitioner Family; Referring Provider Internal Medicine Critical Care Medicine; Visit Provider Internal Medicine Critical Care Medicine | DX: R91.1 Solitary pulmonary nodule (principal); J45.909 Unspecified asthma, uncomplicated | CPT/HCPCS: 94060; 94726; 94729 ==